=== PATIENT | male | born 1955 | race Caucasian/White ===

== ENCOUNTER 2017-11-18 23:09 | Emergency (ER) | payer BC, MEDICARE ==
[~2017-11-18] VITALS: Ht 177.8 cm; Wt 80.3 kg
[2017-11-18] MEDS ORDERED: FURO40TA4 (23:23)
[2017-11-18] MEDS ORDERED: AMLO10TA2 (23:23)
[2017-11-18] MEDS ORDERED: OMEP20CA12 (23:23)
[2017-11-18] MEDS ORDERED: ALLO300T2 (23:23)
[2017-11-18] MEDS ORDERED: FA/V1TAB2 PO (23:23)
[2017-11-18] MEDS ORDERED: SERT50TA9 (23:23)
[2017-11-18] MEDS ORDERED: CALC0.253 PO (23:23)
[2017-11-18] MEDS ORDERED: fentaNYL INJECTION 100 MCG/2 ML AMP IVP ONE (23:30)
[2017-11-18 23:48] LABS: BASOPHILS % (AUTO) 0 % (0-10); EOSINOPHILS % (AUTO) 0 % (0-10); HEMATOCRIT 29 % (40-54); LYMPHOCYTES # (AUTO) 0.8 X 10^3 (1.0-4.0); MEAN CORPUSCULAR HEMOGLOBIN 31 PG (25-34); MEAN CORPUSCULAR HGB CONC 35 G/DL (32-36); MEAN CORPUSCULAR VOLUME 89 FL (80-99); MONOCYTES # (AUTO) 0.8 X 10^3 (0.0-1.0); MONOCYTES % (AUTO) 7 % (0-12); NEUTROPHILS # (AUTO) 9.6 X 10^3 (1.8-7.8); NEUTROPHILS % (AUTO) 85 % (42-75); PLATELET COUNT 168 10^3/uL (130-400); RED BLOOD COUNT 3.22 10^6/uL (4.35-5.85); RED CELL DISTRIBUTION WIDTH 14.9 % (10.0-14.5); WHITE BLOOD COUNT 11.2 10^3/uL (4.3-11.0)
[2017-11-18 23:51] LABS: LYMPHOCYTES % (AUTO) 8 % (12-44)
[2017-11-19 00:06] LABS: CALCIUM 8.7 MG/DL (8.5-10.1); TOTAL PROTEIN 6.4 GM/DL (6.4-8.2)
[2017-11-19 00:22] LABS: CREATININE SERUM 11.98 MG/DL (0.60-1.30)
[2017-11-19] MEDS ORDERED: CEFEPIME INJECTION 2,000 MG in NS (IVPB) 50 ML IV ONE (01:30)
[2017-11-19] MEDS ORDERED: fentaNYL INJECTION 100 MCG/2 ML AMP IVP ONE (02:30)
--- NOTE | 2017-11-19 02:41 | ED Abdominal Pain ---
General Chief Complaint: Abdominal/GI Problems Stated Complaint: KIDNEY PROBLEMS Nursing Triage Note: PT PRESENTS TO ER BY EMS WITH COMPLAINT OF ABD PAIN. STATES HE DOES PERITONEAL DIALYSIS AT HOME. STATES HIS FLUID IS CLOUDY AND "LOOKS LIKE PEE". PT WAS UNABLE TO PERFORM DIALYSIS TONIGHT. Sepsis Screen: No Definite Risk Source of Information: Patient Exam Limitations: No Limitations History of Present Illness Date Seen by Provider: November 18, 2017 Time Seen by Provider: 23:14 Initial Comments This 62-year-old gentleman presents via EMS with complaints of abdominal pain. He performs peritoneal dialysis at home and he began having pain with his dialysis with his treatment yesterday. Pain persisted through the day. He contacted his dialysis nurse who instructed him to perform half a treatment to evaluate the peritoneal fluid. Peritoneal fluid was cloudy. He was instructed to mix the antibiotics he keeps on hand at home and infuse them for a six-hour treatment. Patient had difficulty setting up his cycler and pain was escalating. He therefore decided to present to the emergency room for further care. He was not able to get any of the antibiotics infused. He had a questionable fever last night and some nausea. He is afebrile on arrival. Patient's sticker operator is Dr. Mena at [facility]. He receives his primary care at the [facility] in [place]. Allergies and Home Medications Allergies Coded Allergies: No Known Drug Allergies (Unverified , 11/18/17) Patient Home Medication List Home Medication List Reviewed: Yes Review of Systems Constitutional: see HPI EENTM: No Symptoms Reported Respiratory: No Symptoms Reported Cardiovascular: No Symptoms Reported Gastrointestinal: See HPI Genitourinary: See HPI Musculoskeletal: no symptoms reported Skin: no symptoms reported Psychiatric/Neurological: No Symptoms Reported Endocrine: No Symptoms Reported Hematologic/Lymphatic: No Symptoms Reported Past Ussfvwf-Hpatif-Oxcjhe Hx Patient Social History Alcohol Use: Occasionally Uses Recreational Drug Use: No Smoking Status: Former Smoker Recent Foreign Travel: No Contact w/Someone Who Travel: No Recent Infectious Disease Expo: No Recent Hopitalizations: No Immunizations Up To Date PED Vaccines UTD: Yes Seasonal Allergies Seasonal Allergies: No Past Medical History Surgeries: Yes Abdominal, Orthopedic Respiratory: No Cardiac: Yes Hypertension Neurological: No Genitourinary: Yes Renal Failure, Dialysis Gastrointestinal: Yes Gastroesophageal Reflux Musculoskeletal: No Endocrine: No HEENT: No Cancer: No Psychosocial: No Integumentary: No Blood Disorders: No Physical Exam Vital Signs Vital Signs - First Documented 11/18/17 23:11 Pulse 105 Resp 20 B/P (MAP) 142/94 (110) Pulse Ox 97 O2 Delivery Room Air Capillary Refill : Less Than 3 Seconds General Appearance: WD/WN, no apparent distress HEENT: PERRL/EOMI, normal ENT inspection Neck: normal inspection Respiratory: lungs clear, normal breath sounds, no respiratory distress, no accessory muscle use Cardiovascular: regular rate, rhythm, no edema, no murmur Gastrointestinal: normal bowel sounds, soft, guarding, tenderness (patient is exquisitely tender even to light palpation) Extremities: normal inspection, no pedal edema Neurologic/Psychiatric: tip mender II-XII nml as tested, no motor/sensory deficits, alert, normal mood/affect, oriented x 3 Skin: normal color, warm/dry Focused Exam Lactate Level 11/18/17 23:30: Lactic Acid Level 0.74 Lactic Acid Level Laboratory Tests Test 11/18/17 23:30 Lactic Acid Level 0.74 MMOL/L (0.50-2.00) Progress/Results/Core Measures Results/Orders Lab Results Laboratory Tests Test 11/18/17 23:30 Range/Units White Blood Count 11.2 H 4.3-11.0 10^3/uL Red Blood Count 3.22 L 4.35-5.85 10^6/uL Hemoglobin 10.0 L 13.3-17.7 G/DL Hematocrit 29 L 40-54 % Mean Corpuscular Volume 89 80-99 FL Mean Corpuscular Hemoglobin 31 25-34 PG Mean Corpuscular Hemoglobin Concent 35 32-36 G/DL Red Cell Distribution Width 14.9 H 10.0-14.5 % Platelet Count 168 130-400 10^3/uL Mean Platelet Volume 9.0 7.4-10.4 FL Neutrophils (%) (Auto) 85 H 42-75 % Lymphocytes (%) (Auto) 8 L 12-44 % Monocytes (%) (Auto) 7 0-12 % Eosinophils (%) (Auto) 0 0-10 % Basophils (%) (Auto) 0 0-10 % Neutrophils # (Auto) 9.6 H 1.8-7.8 X 10^3 Lymphocytes # (Auto) 0.8 L 1.0-4.0 X 10^3 Monocytes # (Auto) 0.8 0.0-1.0 X 10^3 Eosinophils # (Auto) 0.0 0.0-0.3 10^3/uL Basophils # (Auto) 0.0 0.0-0.1 10^3/uL Sodium Level 138 135-145 MMOL/L Potassium Level 4.0 3.6-5.0 MMOL/L Chloride Level 105 98-107 MMOL/L Carbon Dioxide Level 19 L 21-32 MMOL/L Anion Gap 14 5-14 MMOL/L Blood Urea Nitrogen 68 H 7-18 MG/DL Creatinine 11.98 H 0.60-1.30 MG/DL Estimat Glomerular Filtration Rate 4 BUN/Creatinine Ratio 6 Glucose Level 94 70-105 MG/DL Lactic Acid Level 0.74 0.50-2.00 MMOL/L Calcium Level 8.7 8.5-10.1 MG/DL Total Bilirubin 1.0 0.1-1.0 MG/DL Aspartate Amino Transf (AST/SGOT) 12 5-34 U/L Alanine Aminotransferase (ALT/SGPT) 12 0-55 U/L Alkaline Phosphatase 60 40-136 U/L C-Reactive Protein High Sensitivity 13.94 H 0.00-0.50 MG/DL Total Protein 6.4 6.4-8.2 GM/DL Albumin 4.0 3.2-4.5 GM/DL Lipase 23 8-78 U/L My Orders Orders - PINEDA QUEVEDO MD Cbc With Automated Diff (11/18/17 23:19) Comprehensive Metabolic Panel (11/18/17 23:19) Hs C Reactive Protein (11/18/17 23:19) Blood Culture (11/18/17 23:19) Saline Lock/Iv-Start (11/18/17 23:19) Lactic Acid Analyzer (11/18/17 23:19) Fentanyl Injection (Sublimaze Injection (11/18/17 23:30) Lipase (11/18/17 23:19) Cefepime Injection (Maxipime Injection) (11/19/17 01:30) Fentanyl Injection (Sublimaze Injection (11/19/17 02:30) Vancomycin Injection (Vancomycin Injecti (11/19/17 03:00) Vancomycin Injection (Vancomycin Injecti (11/19/17 03:00) Medications Given in ED Current Medications Medications Dose Ordered Sig/Edison Route Start Time Stop Time Status Last Admin Dose Admin Cefepime HCl 2000 mg/Sodium Chloride 50 ml @ 200 mls/hr ONCE ONCE IV 11/19/17 01:30 11/19/17 01:44 DC 11/19/17 01:42 200 MLS/HR Fentanyl Citrate 75 mcg ONCE ONCE IVP 11/19/17 02:30 11/19/17 02:31 DC 11/19/17 02:58 75 MCG Fentanyl Citrate 75 mcg ONCE ONCE IVP 11/18/17 23:30 11/18/17 23:31 DC 11/18/17 23:41 75 MCG Vital Signs/I&O 11/18/17 11/19/17 23:11 03:04 Pulse 105 102 Resp 20 20 B/P (MAP) 142/94 (110) 96/53 Pulse Ox 97 99 O2 Delivery Room Air Room Air Blood Pressure Mean: 110 Progress Progress Note : Progress Note Patient was treated with fentanyl and Zofran. Case was reviewed with the sticker operator on-call at [facility], Dr. Price. She recommended starting cefepime and vancomycin and transferring to [facility] for further assessment. Case was also reviewed with Dr. Amna Waters hospitalist, who accepts the transfer. Imaging is being deferred to the receiving facility. Blood culture was obtained prior to starting antibiotics. Departure Impression Primary Impression: Peritonitis Additional Impressions: End stage renal failure on dialysis Abdominal pain Qualified Codes: R10.84 - Generalized abdominal pain Nausea Disposition: XFER SHT-TRM HOSP Condition: Improved Transfer Time Spoke to Accepting Phy: 01:07 Transfer Time: 03:01 Transfer Facility: [facility] Dr. Woo and Dr. Price Method of Transfer: EMS Departure-Patient Inst. Referrals: VERÓNICA WOLF MD (PCP) Primary Care Physician RAMIRO HALL (Family) Primary Care Physician PINEDA QUEVEDO MD November 19, 2017 02:41
[2017-11-19] MEDS ORDERED: VANCOMYCIN INJECTION 1,000 MG in NS (IVPB) 250 ML IV ONE ×4 (03:00)
[2017-11-19 03:04] VITALS: BP 96/53
== END 2017-11-19 03:04 | disposition short-term general hospital (02) ==
LOC: ER 23:14
DX: K65.9 Peritonitis, unspecified (principal); I12.0 Hypertensive chronic kidney disease with stage 5 chronic kidney disease or end stage renal disease; N18.6 End stage renal disease; K21.9 Gastro-esophageal reflux disease without esophagitis; Z99.2 Dependence on renal dialysis; Z87.891 Personal history of nicotine dependence
CPT/HCPCS: 36415; 80053; 83605; 83690; 85025; 86141; 87040; 96365; 96375; 96376

== ENCOUNTER 2020-11-15 06:37 | Outpatient (CLI) | payer MEDICARE, OTHER ==
[~2020-11-15] VITALS: Ht 177.8 cm; Wt 84.8 kg
[~2020-11-15 06:37] MED LIST: ALLO300T2 PO; AMLO-251; CALC0.253 PO; FA/V1TAB2 PO; FURO40TA4; OMEP20CA18 PO; SERT-413 PO
[2020-11-15] MEDS ORDERED: CALC667T5 PO (12:03)
[2020-11-15] MEDS ORDERED: CALC667T7 PO (12:03)
[2020-11-15] MEDS ORDERED: CARV6.252 PO (12:03)
[2020-11-15] MEDS ORDERED: PRAV20TA3 PO (12:03)
[2020-11-15] MEDS ORDERED: FURO80TA3 PO (12:03)
[2020-11-15] MEDS ORDERED: FERR210T PO (12:03)
[2020-11-15] MEDS ORDERED: MAGN400T50 PO (12:04)
[2020-11-15] MEDS ORDERED: CINA30TA2 PO (12:04)
[2020-11-15] MEDS ORDERED: BUDE10.2 IH (12:04)
[2020-11-15] MEDS ORDERED: OMEG1CAP58 PO (12:04)
[2020-11-15] MEDS ORDERED: TIOT18CA2 IH (12:04)
[2020-11-15] MEDS ORDERED: RT-ALBUINH INH (12:04)
== END 2020-11-15 12:08 | disposition home or self-care (01) ==
LOC: PREOP 06:37
PROVIDERS: ATTEND Surgery
DX: Z01.818 Encounter for other preprocedural examination (principal)

== ENCOUNTER 2020-11-16 07:44 | Day surgery (SDC) | payer MEDICARE, OTHER ==
[2020-11-16] VITALS (8 sets, daily range): BP systolic 68–132; BP diastolic 55–87
[~2020-11-16] VITALS: Ht 177.8 cm; Wt 84.8 kg
[~2020-11-16 07:44] MED LIST changes: +BUDE10.2 IH; +CALC667T5 PO; +CALC667T7 PO; +CARV6.252 PO; +CINA30TA2 PO; +FERR210T PO; +FURO80TA3 PO; +MAGN400T50 PO; +OMEG1CAP58 PO; +PRAV20TA3 PO; +RT-ALBUINH INH; +TIOT18CA2 IH
[2020-11-16] MEDS ORDERED: ceFAZolin 2 GM IV Premixed 50 ML IV ONE (08:00)
[2020-11-16] MEDS ORDERED: LACTATED RINGERS 1,000 ML IV PRN (08:00)
--- NOTE | 2020-11-16 08:03 | Progress Note-Pre Operative ---
Pre-Operative Progress Note H&P Reviewed The H&P was reviewed, patient examined and no changes noted. Date Seen by Provider: November 16, 2020 Time Seen by Provider: 08:02 Date H&P Reviewed: November 16, 2020 Time H&P Reviewed: 08:02 Pre-Operative Diagnosis: LUNG CANCER CAROLINE MCKEON DO November 16, 2020 08:03
[2020-11-16] MEDS ORDERED: 0.9% SODIUM CHLORIDE PF INJ 20 ML VIAL ONE (08:08)
[2020-11-16] MEDS ORDERED: LIDOCAINE/EPI 1%-1:100,000 (XYLOCAINE) 20ML ONE (08:08)
[2020-11-16] MEDS ORDERED: HEParin (CENTRAL IV FLUSH) 500 UNIT/5 ML SYR ONE (08:08)
[2020-11-16] MEDS ORDERED: MIDAZOLAM 2 MG/2 ML (VERSED) VIAL ONE (08:57)
[2020-11-16] MEDS ORDERED: PROPOFOL INJECTION 50 ML IV ONE (08:57)
[2020-11-16] MEDS ORDERED: fentaNYL INJ 100 MCG/2 ML AMP ONE (09:01)
--- NOTE | 2020-11-16 09:53 | Progress Note-Post Operative ---
Post-Operative Progess Note Surgeon (s)/Chief Program Officer (s) Surgeon CAROLINE MCKEON DO Chief Program Officer: na Pre-Operative Diagnosis LUNG CANCER Post-Operative Diagnosis same Procedure & Operative Findings Date of Procedure 11/16/20 Procedure Performed/Findings PROCEDURE: Right internal jugular port placement using ultrasound guidance. COMPLICATIONS: None. INDICATIONS: The patient is a 65 year old male needing port. Patient understands the risks and benefits of port placement and wished to proceed with the procedure. Consent was signed on the chart. PROCEDURE: The patient was taken to the operating suite, was prepped and draped in the sterile fashion. A surgical pause was performed. Ultrasound was used to locate the internal jugular vein. Once located anesthetic was infiltrated above it. Using micro-access kit, the right internal vein was accessed. Dark nonpulsatile blood was withdrawn. The wire was inserted. Fluoroscopy assured proper placement. The needle was removed. The micro-access dilator was advanced over the wire and the wire was removed. The regular wire was inserted and fluoroscopy assured proper placement. The wire was then secured. Local anesthetic was used to anesthetize from the neck for tunneling down to the right chest and for pocket creation. A 15 blade scalpel was used to make an incision over the right chest. Cautery was used to dissect down to the pectoral fascia. A pocket was created with blunt dissection. The dilator sheath was then advanced over the wire under fluoroscopy and the dilator and wire were removed. The Gro[place]ong catheter was inserted through the sheath and the sheath was then removed. The [place]ong wire was removed. The catheter was then tunneled to the right chest pocket. Fluoroscopy was used to cut to length and this was then attached to the port which was then placed within the pocket. The port was then accessed without difficulty. It was then flushed with saline and then heparin. The subcutaneous tissues were then reapproximated using 3-0 Vicryl. The areas were then washed and dried. Skin Affix was placed over incision. The insertion point of the neck Skin Affix was placed over the incision. The patient tolerated the procedure well without complication and was taken to recovery room in stable condition. Chest x-ray is pending. Anesthesia Type mac c local Estimated Blood Loss Estimated blood loss (mL): minimal Specimens/Packing Specimens Removed CAROLINE Forbes DO November 16, 2020 09:53
--- NOTE | 2020-11-16 09:54 | Discharge Inst-Simple/Standard ---
Discharge Inst-Standard Patient Instructions/Follow Up Plan of Care/Instructions/FU: 2 weeks [place] Activity as Tolerated: No Discharge Diet: Regular Diet Other Inst to Patient Follow up Appt: Make appointment for 2 week. Instructions: No lifting greater than 10 pounds. No strenuous activity. May shower in 24 hours, no tub bath or soaking. Use incentive spirometer at home as directed. No Smoking Skin/Wound Care: You have special glue over your incision that will fall off on it's own. Ice pack on 15 min and off 30 min and repeat for 48 hours, this decreases swelling and discomfort. Symptoms to Report: Appetite Changes, Extremity Discoloration, Numbness/Tingling, Swelling Increased, Bleeding Excessive, Eyesight Changes, Pain Increased, Urine Color Change, Constipation(Persistent), Fever over 101 degree F, Pain/Pressure in chest, Urinating Difficulty, Cough Up/Vomit Blood, Heart Beat Irreg/Pounding, Pain/Pressure in jaw, Vaginal Bleeding Increase, Cramps in feet or legs, Lightheadedness, Pain/Pressure in shoulder, Diarrhea(Persistent), Memory Changes Suddenly, Questions/Concerns, Weight gain consecutive days, Dizziness/Fainting, Nausea/Vomiting, Shortness of Breath, Weight gain over 2 pounds If questions or concerns contact your physician Or seek help at emergency department. CAROLINE MCKEON DO November 16, 2020 09:54
--- NOTE | 2020-11-16 10:02 | Anesthesia-General Post-Op ---
MAC Patient Condition Mental Status/LOC: Same as Preop Cardiovascular: Satisfactory Nausea/Vomiting: Absent Respiratory: Satisfactory Pain: Controlled Complications: Absent Post Op Complications Complications None Follow Up Care/Instructions Patient Instructions None needed. Anesthesiology Discharge Order Discharge Order Patient is doing well, no complaints, stable vital signs, no apparent adverse anesthesia problems. No complications reported per nursing. MAYUR STOREY CRNA November 16, 2020 10:02
[2020-11-16] MEDS ORDERED: MEPERIDINE (DEMEROL) INJ 50 MG/ML IVP ONE (10:15)
[2020-11-16] MEDS ORDERED: ONDANSETRON 4 MG/2 ML (SDV) Z0FRAN IVP PRN (10:15)
[2020-11-16] MEDS ORDERED: morphine INJ 10 MG/ML 1ML (SYR OR VIAL) IVP ONE (10:15)
--- NOTE | 2020-11-16 10:49 | Diagnostic Imaging Report ---
CHEST 1 VIEW, AP/PA ONLY Indication: Status post Port-A-Cath placement. Comparison: None available. Findings: Right IJ Port-A-Cath has tip terminating in the mid SVC. No pleural effusion or pneumothorax. Lungs are clear where visualized. Posterior lower lobes are poorly evaluated by portable radiography. Normal cardiomediastinal silhouette. Impression: 1. No pneumothorax status post Port-A-Cath placement. Dictated by: Dictated on workstation # [id number]
--- NOTE | 2020-11-16 12:49 | Diagnostic Imaging Report ---
INDICATION: Port-A-Cath placement. Fluoroscopy was provided in the OR during Port-A-Cath placement. 11 seconds of fluoroscopic time was utilized. A single image was obtained demonstrating a right chest wall port with tip overlying the SVC. IMPRESSION: Fluoroscopy for right chest wall port placement. Dictated by: Dictated on workstation # [id number]
== END 2020-11-16 11:50 | disposition home or self-care (01) ==
LOC: SDC 07:44
PROVIDERS: ATTEND Surgery
DX: C34.90 Malignant neoplasm of unspecified part of unspecified bronchus or lung (principal); C78.7 Secondary malignant neoplasm of liver and intrahepatic bile duct; I12.0 Hypertensive chronic kidney disease with stage 5 chronic kidney disease or end stage renal disease; N18.5 Chronic kidney disease, stage 5; Z79.899 Other long term (current) drug therapy; Z87.891 Personal history of nicotine dependence
CPT/HCPCS: 36430; 36561; 71045; 76000; 87081; C1788

== ENCOUNTER 2020-11-17 20:43 | Emergency (ER) | payer MEDICARE, OTHER ==
[~2020-11-17] VITALS: Ht 177.8 cm; Wt 84.8 kg
[2020-11-17 20:58] LABS: BASOPHILS # (AUTO) 0.1 10^3/uL (0.0-0.1); BASOPHILS % (AUTO) 1 % (0-10); EOSINOPHILS # (AUTO) 0.3 10^3/uL (0.0-0.3); EOSINOPHILS % (AUTO) 3 % (0-10); HEMATOCRIT 27 % (40-54); LYMPHOCYTES # (AUTO) 0.7 10^3/uL (1.0-4.0); LYMPHOCYTES % (AUTO) 9 % (12-44); MEAN CORPUSCULAR HEMOGLOBIN 30 pg (25-34); MEAN CORPUSCULAR HGB CONC 33 g/dL (32-36); MEAN CORPUSCULAR VOLUME 90 fL (80-99); MEAN PLATELET VOLUME 10.2 fL (9.0-12.2); MONOCYTES # (AUTO) 0.5 10^3/uL (0.0-1.0); MONOCYTES % (AUTO) 6 % (0-12); NEUTROPHILS # (AUTO) 6.7 10^3/uL (1.8-7.8); NEUTROPHILS % (AUTO) 81 % (42-75); PLATELET COUNT 155 10^3/uL (130-400); WHITE BLOOD COUNT 8.2 10^3/uL (4.3-11.0)
[2020-11-17 21:05] VITALS: BP_SYST 111; BP_SYST 117; BP_SYST 120; BP_DIAS 55; BP_DIAS 65; BP_DIAS 67
[2020-11-17 21:09] LABS: ALBUMIN 3.1 GM/DL (3.2-4.5); POTASSIUM 2.8 MMOL/L (3.6-5.0)
[2020-11-17 21:10] LABS: CALCIUM 8.5 MG/DL (8.5-10.1)
[2020-11-17 21:11] LABS: TOTAL PROTEIN 6.2 GM/DL (6.4-8.2)
--- NOTE | 2020-11-17 21:12 | ED Syncope ---
General Chief Complaint: Dizziness/Syncope Stated Complaint: DIZZY Nursing Triage Note: brought in by [facility] for c/o dizziness/lightheaded at home approx. 2014. Source of Information: Patient Exam Limitations: No Limitations (AVERY DICKINSON STUDENT) History of Present Illness Date Seen by Provider: November 17, 2020 Time Seen by Provider: 20:45 Initial Comments Pt arrived via EMS with complaints of new onset lightheadedness/dizzin ess/weakness when trying to get up from the dinner table tonight. Denies LOC, fainting. BP 80/40 per EMS. Significant history of CRF, COPD, lung and liver cancer. Denies prior episodes of similar events. Denies chest pain, N/V, abd pain. Has chronic SOB r/t COPD. Timing/Prior Episodes: No Prior History, Single Episode Today Symptoms Prior to Episode: None Precipitating Factors: Standing Episode Description: Acute onset lightheadedness when moving from sitting to standing position Loss of Consciousness: No Loss of Consciousness Current Symptoms: Back to Normal (AVERY DICKINSON STUDENT) Allergies and Home Medications Allergies Coded Allergies: No Known Drug Allergies (Unverified , 11/18/17) Home Medications Albuterol Sulfate 1 Puff Puff, 2 PUFF INH Q4H PRN for WHEEZING, (Reported) 1 PUFF = 90 MCG Allopurinol 300 Mg Tablet, 300 MG PO DAILY, (Reported) Budesonide/Formoterol Fumarate 10.2 Gm Hfa.aer.ad, 2 PUFF IH BID, (Reported) Calcitriol 0.25 Mcg Capsule, 0.25 MCG PO DAILY, (Reported) Calcium Acetate 667 Mg Tablet, 2,001 MG PO TIDWM, (Reported) TAKE 3 (667MG) TABS Calcium Acetate 667 Mg Tablet, 1,334 MG PO UD, (Reported) TAKE 2 (667MG) TABS WITH SNACKS Carvedilol 6.25 Mg Tablet, 6.25 MG PO BID, (Reported) Cinacalcet HCl 30 Mg Tablet, 30 MG PO SuMoWeFr, (Reported) FA/Vit Bcomp&C/Zinc/Vitamin D3 1 Each Tablet, 1 EACH PO DAILY, (Reported) Ferric Citrate 210 Mg Tablet, 210 MG PO TIDWM, (Reported) Furosemide 80 Mg Tablet, 80 MG PO DAILY, (Reported) Magnesium Oxide 400 Mg Tablet, 400 MG PO DAILY, (Reported) [place]-3 Fatty Acids/Fish Oil 1 Each Capsule, 1 EACH PO DAILY, (Reported) Omeprazole 20 Mg Capsule.dr, 20 MG PO BID, (Reported) Pravastatin Sodium 20 Mg Tablet, 20 MG PO HS, (Reported) Sertraline HCl 50 Mg Tablet, 50 MG PO DAILY, (Reported) Tiotropium [place] 1 Inh Aerp, 1 INH IH DAILY, (Reported) Patient Home Medication List Home Medication List Reviewed: Yes (AVERY DICKINSON) Review of Systems Constitutional: dizziness, weakness, other (lightheaded) EENTM: other (dry mouth); No hearing loss, No vision loss Respiratory: No cough; short of breath Cardiovascular: No chest pain, No edema, No palpitations Gastrointestinal: No constipation, No diarrhea, No nausea, No vomiting Genitourinary: No dysuria, No hematuria Musculoskeletal: No back pain, No joint pain Psychiatric/Neurological: Denies Headache, Denies Numbness, Denies Paresthesia (AVERY DICKINSON) All Other Systems Reviewed Negative Unless Noted: Yes (AVERY DICKINSON) Past Xjzhxzq-Tiuxku-Aqlsmo Hx Past Med/Social Hx: Reviewed Nursing Past Med/Soc Hx (AVERY DICKINSON) Patient Social History Alcohol Use: Occasionally Uses Smoking Status: Former Smoker Former Smoker, Quit: November 15, 2017 Recent Infectious Disease Expo: No Recent Hopitalizations: No (port placed 11/16/20) (AVERY DICKINSON) Immunizations Up To Date PED Vaccines UTD: Yes Date of Pneumonia Vaccine: November 15, 2018 Date of Influenza Vaccine: Apr 12, 2020 (AVERY DICKINSON) Seasonal Allergies Seasonal Allergies: No (AVERY DICKINSON) Past Medical History Surgeries: Yes (diaylsis cath, ) Abdominal, Orthopedic Respiratory: Yes (lung cancer) COPD Currently Using CPAP: No Currently Using BIPAP: No Cardiac: Yes Hypertension Neurological: No Genitourinary: Yes (DIALYSIS AT HOME EACH NIGHT) Renal Failure, Dialysis Gastrointestinal: Yes Gastroesophageal Reflux Musculoskeletal: No Endocrine: No HEENT: No Cancer: Yes (upper dentures) Lung Psychosocial: No Integumentary: No Blood Disorders: No (AVERY DICKINSON) Physical Exam Vital Signs Vital Signs - First Documented 11/17/20 20:44 Temp 36.6 Pulse 83 Resp 16 B/P (MAP) 115/57 (76) Pulse Ox 98 O2 Delivery Room Air (OBDULIA LOGAN) Vital Signs Capillary Refill : Less Than 3 Seconds (AVREY DICKINSON STUDENT) Height, Weight, BMI Height: 5'10.00" Weight: 177lbs. oz. 80.586603zw; 26.00 BMI Method:Stated General Appearance: No Apparent Distress, WD/WN HEENT: PERRL/EOMI, Other (dry mucus membranes) Neck: Full Range of Motion, Normal Inspection, Non Tender, Supple Cardiovascular: Regular Rate, Rhythm, No Edema, No Murmur, Normal Peripheral Pulses Respiratory: Chest Non Tender, Lungs Clear, Normal Breath Sounds, No Accessory Muscle Use, No Respiratory Distress Gastrointestinal: Normal Bowel Sounds, Soft, Distended, Tenderness (mild tenderness to RUQ), Other (peritoneal dialysis catheter R abd) Extremities: Normal Capillary Refill, Normal Inspection, Normal Range of Motion, Non Tender Neurologic/Psychiatric: Alert, Oriented x3, No Motor/Sensory Deficits, Normal Mood/Affect Cranial Nerves: Normal Hearing, Normal Speech Motor/Sensory: No Motor Deficit, No Sensory Deficit Skin: Normal Color, Warm/Dry, Other (surgical incision to R upper chest sealed with dermabond, c/d/i, no s/s infection) Lymphatic: No Adenopathy (AVERY DICKINSON STUDENT) Progress/Results/Core Measures Results/Orders Lab Results Laboratory Tests Test 11/17/20 20:50 Range/Units White Blood Count 8.2 4.3-11.0 10^3/uL Red Blood Count 3.02 L 4.30-5.52 10^6/uL Hemoglobin 9.0 L 13.3-17.7 g/dL Hematocrit 27 L 40-54 % Mean Corpuscular Volume 90 80-99 fL Mean Corpuscular Hemoglobin 30 25-34 pg Mean Corpuscular Hemoglobin Concent 33 32-36 g/dL Red Cell Distribution Width 13.6 10.0-14.5 % Platelet Count 155 130-400 10^3/uL Mean Platelet Volume 10.2 9.0-12.2 fL Immature Granulocyte % (Auto) 1 % Neutrophils (%) (Auto) 81 H 42-75 % Lymphocytes (%) (Auto) 9 L 12-44 % Monocytes (%) (Auto) 6 0-12 % Eosinophils (%) (Auto) 3 0-10 % Basophils (%) (Auto) 1 0-10 % Neutrophils # (Auto) 6.7 1.8-7.8 10^3/uL Lymphocytes # (Auto) 0.7 L 1.0-4.0 10^3/uL Monocytes # (Auto) 0.5 0.0-1.0 10^3/uL Eosinophils # (Auto) 0.3 0.0-0.3 10^3/uL Basophils # (Auto) 0.1 0.0-0.1 10^3/uL Immature Granulocyte # (Auto) 0.1 0.0-0.1 10^3/uL Sodium Level 140 135-145 MMOL/L Potassium Level 2.8 L 3.6-5.0 MMOL/L Chloride Level 98 98-107 MMOL/L Carbon Dioxide Level 22 21-32 MMOL/L Anion Gap 20 H 5-14 MMOL/L Blood Urea Nitrogen 54 H 7-18 MG/DL Creatinine 18.76 #H 0.60-1.30 MG/DL Estimat Glomerular Filtration Rate 3 BUN/Creatinine Ratio 3 Glucose Level 119 H 70-105 MG/DL Calcium Level 8.5 8.5-10.1 MG/DL Corrected Calcium 9.2 8.5-10.1 MG/DL Total Bilirubin 0.7 0.1-1.0 MG/DL Aspartate Amino Transf (AST/SGOT) 30 5-34 U/L Alanine Aminotransferase (ALT/SGPT) 18 0-55 U/L Alkaline Phosphatase 264 H 40-136 U/L Troponin I 0.032 H <0.028 NG/ML C-Reactive Protein High Sensitivity 8.32 H 0.00-0.50 MG/DL B-Type Natriuretic Peptide 55.0 <100.0 PG/ML Total Protein 6.2 L 6.4-8.2 GM/DL Albumin 3.1 L 3.2-4.5 GM/DL (OBDULIA LOGAN) My Orders Orders - OBDULIA LOGAN Orthostatic Vital Signs (Adult (11/17/20 20:48) Cbc With Automated Diff (11/17/20 20:48) Comprehensive Metabolic Panel (11/17/20 20:48) Hs C Reactive Protein (11/17/20 20:48) BNP (11/17/20 20:48) Troponin I (11/17/20 20:48) Continuous Ekg Monitoring (11/17/20 20:48) Ekg Tracing (11/17/20 20:48) (OBDULIA LOGAN) Vital Signs/I&O 11/17/20 11/17/20 20:44 21:05 Temp 36.6 Pulse 83 80 85 84 Resp 16 B/P (MAP) 115/57 (76) 120/67 (84) 117/65 (82) 111/55 (73) Pulse Ox 98 O2 Delivery Room Air (OBDULIA LOGAN) Blood Pressure Mean: 73 Progress Progress Note #1: Time: 21:48 Progress Note I attest that I saw this patient alongside the medical student and agree with his documented history, physical exam and review of systems except as otherwise noted. Patient is with orthostatic hypotension. After a liter of fluids he feels much better. We will try getting him up walking around to see if he has near syncope. We did offer hospital observation at [facility] and he says if he can get up and walk around he is fine to go home. Progress Note #2: Time: 22:08 Progress Note Patient was able to walk with staff and is no longer orthostatic. He elects to go home at this time after discussing observation stay. (OBDULIA LOGAN) Initial ECG Impression Date: November 17, 2020 Initial ECG Impression Time: 20:59 Initial ECG Rate: 81 Initial ECG Rhythm: Normal Sinus Initial ECG Intervals: Normal Initial ECG Impression: Normal, Nonspecific Changes Initial ECG Comparisson: Unchanged Comment Sinus rhythm without clinically relevant ST changes. (OBDULIA LOGAN) Departure Impression Primary Impression: Orthostatic hypotension Disposition: 01 HOME, SELF-CARE Condition: Stable Departure-Patient Inst. Decision time for Depature: 22:08 (OBDULIA LOGAN) Referrals: ANMOL HOOK APRN (PCP/Family) Primary Care Physician Patient Instructions: Orthostatic Hypotension (DC) Add. Discharge Instructions: Go home and do dialysis and call your spray foam installer on Thursday for follow-up in the clinic. Return to the ER for significantly worsening symptoms. All discharge instructions reviewed with patient and/or family. Voiced understanding. AVERY DICKINSON MED STUDENT November 17, 2020 21:12 OBDULIA LOGAN November 17, 2020 21:48
[2020-11-17 21:13] LABS: BILIRUBIN,TOTAL 0.7 MG/DL (0.1-1.0)
[2020-11-17 21:15] LABS: CREATININE SERUM 18.76 MG/DL (0.60-1.30)
[2020-11-17 22:09] VITALS: BP 136/79
== END 2020-11-17 22:14 | disposition home or self-care (01) ==
LOC: EDUNIT# 20:43 → ER 20:46
DX: I95.1 Orthostatic hypotension (principal); J44.9 Chronic obstructive pulmonary disease, unspecified; I10 Essential (primary) hypertension; K21.9 Gastro-esophageal reflux disease without esophagitis; Z87.891 Personal history of nicotine dependence; Z79.899 Other long term (current) drug therapy
CPT/HCPCS: 36415; 80053; 83880; 84484; 85025; 86141; 93005

== ENCOUNTER → 2020-11-23 | Outpatient (CLI) | payer MEDICARE, OTHER ==
[~2020-11-23] MED LIST changes: +GADOBUTROL 10 MMOL/10 ML (GADAVIST) VIAL IV ONE
--- NOTE | 2020-11-23 11:09 | Diagnostic Imaging Report ---
PROCEDURE: MR imaging of the brain with and without contrast. TECHNIQUE: Multiplanar, multisequence MR imaging of the brain was performed with and without contrast. INDICATION: Small cell carcinoma of the lung. COMPARISON: No prior studies are available for comparison. FINDINGS: There is some prominence of the ventricles and sulci consistent with cerebral volume loss. Mild periventricular white matter changes are noted consistent with chronic microvascular ischemia. There is no sulcal effacement or midline shift. No acute intra-axial or extra-axial hemorrhage is detected. There is no diffusion restriction identified to suggest acute ischemia. The normal expected flow-voids within the carotid siphons are seen. Postcontrast imaging is without an enhancing lesion. There is no evidence of intracranial metastatic disease. Corpus callosum is unremarkable. The sella and parasellar structures are unremarkable. IMPRESSION: Cerebral atrophy and changes of chronic microvascular ischemia. No acute intracranial process is identified. There are no findings to suggest intracranial metastatic disease. Dictated by: Dictated on workstation # [id number]
== END ==
LOC: RAD 09:30
PROVIDERS: ATTEND Nurse Practitioner Adult Health
DX: C34.90 Malignant neoplasm of unspecified part of unspecified bronchus or lung (principal); C78.7 Secondary malignant neoplasm of liver and intrahepatic bile duct; G31.9 Degenerative disease of nervous system, unspecified; I67.82 Cerebral ischemia
CPT/HCPCS: 70553

== ENCOUNTER → 2020-12-05 | Outpatient (CLI) | payer MEDICARE, OTHER ==
[~2020-12-05] MED LIST changes: -GADOBUTROL 10 MMOL/10 ML (GADAVIST) VIAL IV ONE
[2020-12-05 11:45] LABS: MAGNESIUM 1.4 MG/DL (1.6-2.4); PHOSPHORUS 5.5 MG/DL (2.3-4.7)
== END ==
LOC: LAB 11:09
PROVIDERS: ATTEND Internal Medicine Nephrology
DX: E87.6 Hypokalemia (principal); E83.39 Other disorders of phosphorus metabolism; E83.42 Hypomagnesemia
CPT/HCPCS: 36415; 83735; 84100

== ENCOUNTER 2021-02-04 13:18 | Outpatient (RCR) | payer MEDICARE, OTHER ==
[2020-11-14 13:00] LABS: BASOPHILS # (AUTO) 0.1 10^3/uL (0.0-0.1); BASOPHILS % (AUTO) 1 % (0-10); EOSINOPHILS # (AUTO) 0.5 10^3/uL (0.0-0.3); EOSINOPHILS % (AUTO) 4 % (0-10); HEMATOCRIT 29 % (40-54); HEMOGLOBIN 9.7 g/dL (13.3-17.7); LYMPHOCYTES % (AUTO) 8 % (12-44); MEAN CORPUSCULAR HEMOGLOBIN 30 pg (25-34); MEAN CORPUSCULAR HGB CONC 33 g/dL (32-36); MEAN CORPUSCULAR VOLUME 91 fL (80-99); MEAN PLATELET VOLUME 9.7 fL (9.0-12.2); MONOCYTES # (AUTO) 0.7 10^3/uL (0.0-1.0); MONOCYTES % (AUTO) 6 % (0-12); NEUTROPHILS % (AUTO) 81 % (42-75); PLATELET COUNT 188 10^3/uL (130-400); WHITE BLOOD COUNT 12.3 10^3/uL (4.3-11.0)
[2020-11-14 13:32] LABS: ALBUMIN 3.5 GM/DL (3.2-4.5); BILIRUBIN,TOTAL 0.7 MG/DL (0.1-1.0); CALCIUM 8.4 MG/DL (8.5-10.1); CREATININE SERUM 17.58 MG/DL (0.60-1.30); TOTAL PROTEIN 6.7 GM/DL (6.4-8.2)
[2020-11-28 09:24] LABS: EOSINOPHILS % (AUTO) 5 % (0-10); LYMPHOCYTES % (AUTO) 8 % (12-44)
[2020-11-28 09:26] LABS: BASOPHILS # (AUTO) 0.1 10^3/uL (0.0-0.1); BASOPHILS % (AUTO) 1 % (0-10); EOSINOPHILS # (AUTO) 0.3 10^3/uL (0.0-0.3); HEMATOCRIT 25 % (40-54); HEMOGLOBIN 8.3 g/dL (13.3-17.7); LYMPHOCYTES # (AUTO) 0.4 10^3/uL (1.0-4.0); MEAN CORPUSCULAR HEMOGLOBIN 30 pg (25-34); MEAN CORPUSCULAR HGB CONC 33 g/dL (32-36); MEAN CORPUSCULAR VOLUME 91 fL (80-99); MEAN PLATELET VOLUME 10.5 fL (9.0-12.2); MONOCYTES % (AUTO) 1 % (0-12); NEUTROPHILS # (AUTO) 3.6 10^3/uL (1.8-7.8); NEUTROPHILS % (AUTO) 66 % (42-75); PLATELET COUNT 107 10^3/uL (130-400); WHITE BLOOD COUNT 5.5 10^3/uL (4.3-11.0)
[2020-11-28 09:38] LABS: CALCIUM 7.4 MG/DL (8.5-10.1); CREATININE SERUM 15.16 MG/DL (0.60-1.30); POTASSIUM 3.8 MMOL/L (3.6-5.0)
[2020-12-05 10:27] LABS: EOSINOPHILS # (AUTO) 0.3 10^3/uL (0.0-0.3); EOSINOPHILS % (AUTO) 1 % (0-10); HEMOGLOBIN 8.1 g/dL (13.3-17.7); MONOCYTES # (AUTO) 2.8 10^3/uL (0.0-1.0)
[2020-12-05 10:29] LABS: BASOPHILS # (AUTO) 0.1 10^3/uL (0.0-0.1); BASOPHILS % (AUTO) 0 % (0-10); HEMATOCRIT 25 % (40-54); LYMPHOCYTES # (AUTO) 2.1 10^3/uL (1.0-4.0); LYMPHOCYTES % (AUTO) 8 % (12-44); MEAN CORPUSCULAR HEMOGLOBIN 30 pg (25-34); MEAN CORPUSCULAR HGB CONC 32 g/dL (32-36); MEAN CORPUSCULAR VOLUME 92 fL (80-99); MEAN PLATELET VOLUME 10.3 fL (9.0-12.2); MONOCYTES % (AUTO) 10 % (0-12); NEUTROPHILS % (AUTO) 67 % (42-75); PLATELET COUNT 109 10^3/uL (130-400); WHITE BLOOD COUNT 26.9 10^3/uL (4.3-11.0)
[2020-12-05 11:14] LABS: CALCIUM 8.9 MG/DL (8.5-10.1); CREATININE SERUM 15.04 MG/DL (0.60-1.30)
[2020-12-12 09:10] LABS: BASOPHILS # (AUTO) 0.1 10^3/uL (0.0-0.1); BASOPHILS % (AUTO) 1 % (0-10); EOSINOPHILS # (AUTO) 0.2 10^3/uL (0.0-0.3); EOSINOPHILS % (AUTO) 1 % (0-10); HEMATOCRIT 24 % (40-54); LYMPHOCYTES # (AUTO) 1.1 10^3/uL (1.0-4.0); LYMPHOCYTES % (AUTO) 8 % (12-44); MEAN CORPUSCULAR HEMOGLOBIN 30 pg (25-34); MEAN CORPUSCULAR HGB CONC 33 g/dL (32-36); MEAN CORPUSCULAR VOLUME 91 fL (80-99); MEAN PLATELET VOLUME 9.8 fL (9.0-12.2); MONOCYTES # (AUTO) 0.7 10^3/uL (0.0-1.0); MONOCYTES % (AUTO) 5 % (0-12); NEUTROPHILS # (AUTO) 9.7 10^3/uL (1.8-7.8); NEUTROPHILS % (AUTO) 77 % (42-75); PLATELET COUNT 148 10^3/uL (130-400); WHITE BLOOD COUNT 12.7 10^3/uL (4.3-11.0)
[2020-12-12 09:46] LABS: ALBUMIN 3.4 GM/DL (3.2-4.5); BILIRUBIN,TOTAL 0.6 MG/DL (0.1-1.0); CALCIUM 8.9 MG/DL (8.5-10.1); CREATININE SERUM 15.04 MG/DL (0.60-1.30); POTASSIUM 4.5 MMOL/L (3.6-5.0)
[2020-12-19 15:32] LABS: BASOPHILS # (AUTO) 0.1 10^3/uL (0.0-0.1); BASOPHILS % (AUTO) 0 % (0-10); EOSINOPHILS # (AUTO) 0.2 10^3/uL (0.0-0.3); EOSINOPHILS % (AUTO) 1 % (0-10); LYMPHOCYTES # (AUTO) 1.1 X 10^3 (1.0-4.0); LYMPHOCYTES % (AUTO) 4 % (12-44); MEAN CORPUSCULAR HEMOGLOBIN 30 pg (25-34); MEAN CORPUSCULAR HGB CONC 33 g/dL (32-36); MEAN CORPUSCULAR VOLUME 92 fL (80-99); MEAN PLATELET VOLUME 9.1 fL (9.0-12.2); MONOCYTES # (AUTO) 0.2 X 10^3 (0.0-1.0); MONOCYTES % (AUTO) 1 % (0-12); NEUTROPHILS # (AUTO) 21.4 X 10^3 (1.8-7.8); NEUTROPHILS % (AUTO) 76 % (42-75); PLATELET COUNT 113 10^3/uL (130-400)
[2020-12-19 15:41] LABS: HEMATOCRIT 19 % (40-54); HEMOGLOBIN 6.2 g/dL (13.3-17.7)
[2020-12-19 16:00] LABS: CALCIUM 7.7 MG/DL (8.5-10.1); CREATININE SERUM 15.13 MG/DL (0.60-1.30); POTASSIUM 4.9 MMOL/L (3.6-5.0)
[2020-12-26 09:13] LABS: BASOPHILS % (AUTO) 1 % (0-10); HEMOGLOBIN 7.1 g/dL (13.3-17.7)
[2020-12-26 09:14] LABS: BASOPHILS # (AUTO) 0.1 10^3/uL (0.0-0.1); EOSINOPHILS # (AUTO) 0.6 10^3/uL (0.0-0.3); EOSINOPHILS % (AUTO) 4 % (0-10); HEMATOCRIT 21 % (40-54); LYMPHOCYTES # (AUTO) 1.3 10^3/uL (1.0-4.0); LYMPHOCYTES % (AUTO) 9 % (12-44); MEAN CORPUSCULAR HEMOGLOBIN 30 pg (25-34); MEAN CORPUSCULAR HGB CONC 33 g/dL (32-36); MEAN CORPUSCULAR VOLUME 91 fL (80-99); MEAN PLATELET VOLUME 9.6 fL (9.0-12.2); MONOCYTES # (AUTO) 0.7 10^3/uL (0.0-1.0); MONOCYTES % (AUTO) 4 % (0-12); NEUTROPHILS # (AUTO) 9.5 10^3/uL (1.8-7.8); NEUTROPHILS % (AUTO) 62 % (42-75); PLATELET COUNT 130 10^3/uL (130-400); WHITE BLOOD COUNT 15.3 10^3/uL (4.3-11.0)
[2020-12-26 09:31] LABS: CALCIUM 7.7 MG/DL (8.5-10.1); CREATININE SERUM 16.88 MG/DL (0.60-1.30)
[2021-01-02 11:29] LABS: BASOPHILS # (AUTO) 0.1 10^3/uL (0.0-0.1); BASOPHILS % (AUTO) 1 % (0-10); EOSINOPHILS # (AUTO) 0.4 10^3/uL (0.0-0.3); EOSINOPHILS % (AUTO) 3 % (0-10); HEMATOCRIT 21 % (40-54); HEMOGLOBIN 7.1 g/dL (13.3-17.7); LYMPHOCYTES # (AUTO) 1.2 10^3/uL (1.0-4.0); LYMPHOCYTES % (AUTO) 9 % (12-44); MEAN CORPUSCULAR HEMOGLOBIN 30 pg (25-34); MEAN CORPUSCULAR HGB CONC 33 g/dL (32-36); MEAN CORPUSCULAR VOLUME 91 fL (80-99); MEAN PLATELET VOLUME 9.8 fL (9.0-12.2); MONOCYTES # (AUTO) 0.7 10^3/uL (0.0-1.0); MONOCYTES % (AUTO) 6 % (0-12); NEUTROPHILS # (AUTO) 9.2 10^3/uL (1.8-7.8); NEUTROPHILS % (AUTO) 73 % (42-75); PLATELET COUNT 181 10^3/uL (130-400); WHITE BLOOD COUNT 12.5 10^3/uL (4.3-11.0)
[2021-01-02 11:45] LABS: ALBUMIN 3.3 GM/DL (3.2-4.5); BILIRUBIN,TOTAL 0.6 MG/DL (0.1-1.0); CALCIUM 8.1 MG/DL (8.5-10.1); CREATININE SERUM 16.35 MG/DL (0.60-1.30); POTASSIUM 4.1 MMOL/L (3.6-5.0); TOTAL PROTEIN 5.9 GM/DL (6.4-8.2)
[2021-01-09 10:59] LABS: BASOPHILS # (AUTO) 0.2 10^3/uL (0.0-0.1); BASOPHILS % (AUTO) 0 % (0-10); EOSINOPHILS # (AUTO) 0.2 10^3/uL (0.0-0.3); EOSINOPHILS % (AUTO) 1 % (0-10); LYMPHOCYTES # (AUTO) 0.8 10^3/uL (1.0-4.0); LYMPHOCYTES % (AUTO) 2 % (12-44); MEAN CORPUSCULAR HEMOGLOBIN 31 pg (25-34); MEAN CORPUSCULAR HGB CONC 34 g/dL (32-36); MEAN CORPUSCULAR VOLUME 93 fL (80-99); MONOCYTES # (AUTO) 0.1 10^3/uL (0.0-1.0); MONOCYTES % (AUTO) 0 % (0-12); NEUTROPHILS # (AUTO) 32.1 10^3/uL (1.8-7.8); NEUTROPHILS % (AUTO) 82 % (42-75); PLATELET COUNT 140 10^3/uL (130-400)
[2021-01-09 11:04] LABS: HEMATOCRIT 18 % (40-54); HEMOGLOBIN 6.2 g/dL (13.3-17.7); WHITE BLOOD COUNT 39.2 10^3/uL (4.3-11.0)
[2021-01-09 11:06] LABS: CALCIUM 7.6 MG/DL (8.5-10.1); CREATININE SERUM 15.23 MG/DL (0.60-1.30); POTASSIUM 4.1 MMOL/L (3.6-5.0)
[2021-01-16 09:58] LABS: HEMATOCRIT 22 % (40-54)
[2021-01-16 10:00] LABS: BASOPHILS # (AUTO) 0.1 10^3/uL (0.0-0.1); BASOPHILS % (AUTO) 1 % (0-10); EOSINOPHILS # (AUTO) 0.4 10^3/uL (0.0-0.3); EOSINOPHILS % (AUTO) 4 % (0-10); HEMOGLOBIN 7.3 g/dL (13.3-17.7); LYMPHOCYTES # (AUTO) 0.9 10^3/uL (1.0-4.0); LYMPHOCYTES % (AUTO) 11 % (12-44); MEAN CORPUSCULAR HEMOGLOBIN 31 pg (25-34); MEAN CORPUSCULAR HGB CONC 33 g/dL (32-36); MEAN CORPUSCULAR VOLUME 94 fL (80-99); MEAN PLATELET VOLUME 9.8 fL (9.0-12.2); MONOCYTES # (AUTO) 0.4 10^3/uL (0.0-1.0); MONOCYTES % (AUTO) 5 % (0-12); NEUTROPHILS # (AUTO) 5.2 10^3/uL (1.8-7.8); NEUTROPHILS % (AUTO) 60 % (42-75); PLATELET COUNT 113 10^3/uL (130-400); WHITE BLOOD COUNT 8.6 10^3/uL (4.3-11.0)
[2021-01-16 10:14] LABS: CREATININE SERUM 15.24 MG/DL (0.60-1.30)
[2021-01-17 11:26] LABS: RETICULOCYTE % 3.15 % (0.50-2.40)
[2021-01-23 13:41] LABS: BASOPHILS # (AUTO) 0.1 10^3/uL (0.0-0.1); BASOPHILS % (AUTO) 1 % (0-10); EOSINOPHILS # (AUTO) 0.5 10^3/uL (0.0-0.3); EOSINOPHILS % (AUTO) 4 % (0-10); HEMATOCRIT 25 % (40-54); HEMOGLOBIN 8.6 g/dL (13.3-17.7); LYMPHOCYTES # (AUTO) 1.3 10^3/uL (1.0-4.0); LYMPHOCYTES % (AUTO) 9 % (12-44); MEAN CORPUSCULAR HEMOGLOBIN 32 pg (25-34); MEAN CORPUSCULAR HGB CONC 34 g/dL (32-36); MEAN CORPUSCULAR VOLUME 93 fL (80-99); MEAN PLATELET VOLUME 9.8 fL (9.0-12.2); MONOCYTES # (AUTO) 0.7 10^3/uL (0.0-1.0); MONOCYTES % (AUTO) 5 % (0-12); NEUTROPHILS % (AUTO) 72 % (42-75); PLATELET COUNT 218 10^3/uL (130-400); WHITE BLOOD COUNT 13.8 10^3/uL (4.3-11.0)
[2021-01-23 14:00] LABS: ALBUMIN 3.5 GM/DL (3.2-4.5); BILIRUBIN,TOTAL 0.5 MG/DL (0.1-1.0); CALCIUM 8.3 MG/DL (8.5-10.1); CREATININE SERUM 15.65 MG/DL (0.60-1.30); POTASSIUM 3.9 MMOL/L (3.6-5.0); TOTAL PROTEIN 6.3 GM/DL (6.4-8.2)
[2021-01-30 09:41] LABS: BASOPHILS % (AUTO) 0 % (0-10); EOSINOPHILS % (AUTO) 0 % (0-10); LYMPHOCYTES % (AUTO) 1 % (12-44); MEAN CORPUSCULAR HEMOGLOBIN 32 pg (25-34); MONOCYTES % (AUTO) 0 % (0-12); NEUTROPHILS % (AUTO) 82 % (42-75)
[2021-01-30 09:43] LABS: BASOPHILS # (AUTO) 0.1 10^3/uL (0.0-0.1); EOSINOPHILS # (AUTO) 0.1 10^3/uL (0.0-0.3); LYMPHOCYTES # (AUTO) 0.4 10^3/uL (1.0-4.0); MEAN CORPUSCULAR HGB CONC 34 g/dL (32-36); MEAN CORPUSCULAR VOLUME 93 fL (80-99); MONOCYTES # (AUTO) 0.1 10^3/uL (0.0-1.0); NEUTROPHILS # (AUTO) 25.9 10^3/uL (1.8-7.8); PLATELET COUNT 89 10^3/uL (130-400)
[2021-01-30 09:46] LABS: HEMATOCRIT 20 % (40-54); HEMOGLOBIN 6.8 g/dL (13.3-17.7); WHITE BLOOD COUNT 31.4 10^3/uL (4.3-11.0)
[2021-01-30 10:03] LABS: CALCIUM 8.5 MG/DL (8.5-10.1); CREATININE SERUM 15.09 MG/DL (0.60-1.30); POTASSIUM 3.8 MMOL/L (3.6-5.0)
[~2021-02-04] VITALS: Ht 177.8 cm; Wt 84.8 kg
[~2021-02-04 13:18] MED LIST changes: +ALTEPLASE 2 MG (CATHFLO) CANCER CENTER IV ONE; +ATEZOLIZUMAB 1,200 MG in NS (IVPB) CANCER CENTER 250 ML IV SCH; +ETOPOSIDE 100 MG in NORMAL SALINE (CANCER CENTER) 500 ML IV SCH; +FOSAPREPITANT (CANCER CENTER) 150 MG in NS (IVPB) CANCER CENTER ONLY 150 ML IV SCH; +NS (IVPB) CANCER CENTER 250 ML ONE; +NS IV 1000 ML (CANCER CTR) IV SCH; +NS IV 500 ML (CANCER CENTER) 500 ML ONE; +PEGFILGRASTIM-BMEZ 6 MG/0.6 ML ZIEXTENZO SQ SCH
[2021-02-04 13:29] LABS: BASOPHILS % (AUTO) 1 % (0-10); EOSINOPHILS # (AUTO) 0.1 10^3/uL (0.0-0.3); EOSINOPHILS % (AUTO) 4 % (0-10); LYMPHOCYTES # (AUTO) 0.4 10^3/uL (1.0-4.0); LYMPHOCYTES % (AUTO) 15 % (12-44); MEAN CORPUSCULAR HEMOGLOBIN 32 pg (25-34); MEAN CORPUSCULAR HGB CONC 34 g/dL (32-36); MEAN CORPUSCULAR VOLUME 95 fL (80-99); MEAN PLATELET VOLUME 11.1 fL (9.0-12.2); MONOCYTES # (AUTO) 0.3 10^3/uL (0.0-1.0); MONOCYTES % (AUTO) 9 % (0-12); NEUTROPHILS # (AUTO) 1.9 10^3/uL (1.8-7.8); NEUTROPHILS % (AUTO) 67 % (42-75); PLATELET COUNT 67 10^3/uL (130-400); WHITE BLOOD COUNT 2.8 10^3/uL (4.3-11.0)
[2021-02-04 13:31] LABS: HEMATOCRIT 19 % (40-54); HEMOGLOBIN 6.5 g/dL (13.3-17.7)
[2021-02-04 13:49] LABS: CALCIUM 8.6 MG/DL (8.5-10.1); POTASSIUM 3.7 MMOL/L (3.6-5.0)
[2021-02-04 13:50] LABS: CREATININE SERUM 15.86 MG/DL (0.60-1.30)
== END 2021-02-12 | disposition home or self-care (01) ==
LOC: ONC 13:18
PROVIDERS: ATTEND Internal Medicine Hematology & Oncology
DX: Z51.11 Encounter for antineoplastic chemotherapy (principal); C34.32 Malignant neoplasm of lower lobe, left bronchus or lung; C78.7 Secondary malignant neoplasm of liver and intrahepatic bile duct; I12.0 Hypertensive chronic kidney disease with stage 5 chronic kidney disease or end stage renal disease; N18.5 Chronic kidney disease, stage 5; Z98.890 Other specified postprocedural states; Z79.899 Other long term (current) drug therapy; Z87.891 Personal history of nicotine dependence
CPT/HCPCS: 80053; 83615; 85025; G0463; 36430; 36591; 36593; 80048; 82668; 82728; 83540; 83550; 84443; 85045; 86850; 86900; 86901; 86920; 96367; 96372; 96375; 96413; 96417; 99213; 99214

== ENCOUNTER → 2021-02-12 | Outpatient (CLI) | payer MEDICARE, OTHER ==
[~2021-02-12] MED LIST changes: -ALTEPLASE 2 MG (CATHFLO) CANCER CENTER IV ONE; -ATEZOLIZUMAB 1,200 MG in NS (IVPB) CANCER CENTER 250 ML IV SCH; -ETOPOSIDE 100 MG in NORMAL SALINE (CANCER CENTER) 500 ML IV SCH; -FOSAPREPITANT (CANCER CENTER) 150 MG in NS (IVPB) CANCER CENTER ONLY 150 ML IV SCH; -NS (IVPB) CANCER CENTER 250 ML ONE; -NS IV 1000 ML (CANCER CTR) IV SCH; -NS IV 500 ML (CANCER CENTER) 500 ML ONE; -PEGFILGRASTIM-BMEZ 6 MG/0.6 ML ZIEXTENZO SQ SCH
--- NOTE | 2021-02-12 14:21 | Diagnostic Imaging Report ---
INDICATION: Left lower lobe lung neoplasm. Study is performed for subsequent restaging and assess treatment response. Serum blood glucose level at the time of injection is 150 mg/dL. Patient was administered 14.5 mCi F-18 FDG intravenously in the right antecubital location and PET imaging was performed from the top of the skull to mid thighs. Noncontrast CT was also performed for attenuation correction and anatomic correlation. No prior imaging is available for comparison. There is symmetric activity throughout the brain. The soft tissues of the neck are unremarkable. Irregular opacity in the right lower lobe is noted demonstrating some hypermetabolism. The most superior component of the lesion measures approximately 2.9 x 1.8 cm and demonstrates an SUV max of 5.8. Component more posterior and laterally and slightly inferior measures 2.8 x 2.0 cm and demonstrates an SUV max of 3.9. There is some hypermetabolism in the infrahilar location which could be a hypermetabolic lymph node with SUV max of 4.7. No other suspicious regions of hypermetabolism are identified. There is physiologic activity throughout the gastrointestinal and genitourinary tracts of the abdomen and pelvis. Patient does have an infrarenal abdominal aortic aneurysm measuring 4.3 cm in AP diameter. There is some free fluid in the pelvis. Patient does have a peritoneal dialysis catheter. IMPRESSION: 1. There are some irregular hypermetabolic opacities in the right lower lobe, suspicious for neoplasm. There is also some hypermetabolism in the right infrahilar location suspicious for a hypermetabolic lymph node. 2. No suspicious hypermetabolic foci below the diaphragm are identified. Patient does have an infrarenal abdominal aortic aneurysm. Dictated by: Dictated on workstation # [id number]
== END ==
LOC: RAD 08:15
PROVIDERS: ATTEND Internal Medicine Hematology & Oncology
DX: C34.32 Malignant neoplasm of lower lobe, left bronchus or lung (principal); C78.7 Secondary malignant neoplasm of liver and intrahepatic bile duct
CPT/HCPCS: 78815; A9552

== ENCOUNTER → 2021-05-07 | Outpatient (CLI) | payer MEDICARE, OTHER ==
--- NOTE | 2021-05-07 13:32 | Diagnostic Imaging Report ---
INDICATION: Primary malignant neoplasm of the lower lobe of left lung with liver metastases. Study is performed for subsequent restaging and to assess response to treatment. TECHNIQUE: Serum blood glucose level at the time of injection is 92 mg/dL. Patient was administered 14.5 mCi F-18 FDG intravenously in the right antecubital location and PET imaging was performed from the top of the skull to mid thighs. Noncontrast CT was also performed for attenuation correction and anatomic correlation. COMPARISON: Correlation is made with prior PET/CT from 02/12/2021. FINDINGS: There is symmetric activity throughout the brain. Soft tissues of the neck are unremarkable. The original irregular opacities in the right lower lobe and right infrahilar region appear significantly improved on today's PET scan and are now barely visible and show very little hypermetabolic activity. However, there are new hypermetabolic foci present in the chest. There is a hypermetabolic lymph node in the AP window with an SUV max of 7.3. There is an irregular focus in the posterior left upper lobe with an SUV max of 3.6. This measures approximately 12 mm. A subpleural irregular opacity has developed in the right upper lobe measuring 11 mm. This demonstrate SUV max of 5.4. There also appear to be numerous low densities throughout the liver consistent with hepatic metastatic disease. Several of these show uptake. The remainder of the abdomen and pelvis are unremarkable. IMPRESSION: The primary malignancy in the right lower lobe does appear much improved. However, there is a new hypermetabolic lymph node in the mediastinum AP window as well as irregular hypermetabolic foci have developed in the left upper lobe and right upper lobe. In addition, there are increasing low-density lesions within the liver consistent with worsening hepatic metastatic disease. Dictated by: Dictated on workstation # [id number]
== END ==
LOC: RAD 09:45
PROVIDERS: ATTEND Nurse Practitioner Adult Health
DX: C34.32 Malignant neoplasm of lower lobe, left bronchus or lung (principal); C78.7 Secondary malignant neoplasm of liver and intrahepatic bile duct
CPT/HCPCS: 78815; A9552

== ENCOUNTER → 2021-05-14 | Outpatient (RCR) | payer MEDICARE, OTHER ==
[2021-02-13 10:32] LABS: BASOPHILS # (AUTO) 0.1 10^3/uL (0.0-0.1); BASOPHILS % (AUTO) 0 % (0-10); EOSINOPHILS # (AUTO) 0.2 10^3/uL (0.0-0.3); EOSINOPHILS % (AUTO) 2 % (0-10); HEMATOCRIT 23 % (40-54); HEMOGLOBIN 7.6 g/dL (13.3-17.7); LYMPHOCYTES # (AUTO) 1.2 10^3/uL (1.0-4.0); LYMPHOCYTES % (AUTO) 10 % (12-44); MEAN CORPUSCULAR HEMOGLOBIN 31 pg (25-34); MEAN CORPUSCULAR HGB CONC 33 g/dL (32-36); MEAN CORPUSCULAR VOLUME 94 fL (80-99); MEAN PLATELET VOLUME 9.3 fL (9.0-12.2); MONOCYTES # (AUTO) 0.6 10^3/uL (0.0-1.0); MONOCYTES % (AUTO) 5 % (0-12); NEUTROPHILS # (AUTO) 8.6 10^3/uL (1.8-7.8); NEUTROPHILS % (AUTO) 73 % (42-75); PLATELET COUNT 214 10^3/uL (130-400); WHITE BLOOD COUNT 11.7 10^3/uL (4.3-11.0)
[2021-02-13 10:49] LABS: ALBUMIN 2.9 GM/DL (3.2-4.5); BILIRUBIN,TOTAL 0.4 MG/DL (0.1-1.0); CALCIUM 8.3 MG/DL (8.5-10.1); CREATININE SERUM 15.41 MG/DL (0.60-1.30); POTASSIUM 3.5 MMOL/L (3.6-5.0); TOTAL PROTEIN 5.7 GM/DL (6.4-8.2)
[2021-02-20 09:40] LABS: BASOPHILS # (AUTO) 0.1 10^3/uL (0.0-0.1); BASOPHILS % (AUTO) 1 % (0-10); EOSINOPHILS # (AUTO) 0.2 10^3/uL (0.0-0.3); EOSINOPHILS % (AUTO) 3 % (0-10); HEMATOCRIT 23 % (40-54); HEMOGLOBIN 7.7 g/dL (13.3-17.7); LYMPHOCYTES # (AUTO) 0.8 10^3/uL (1.0-4.0); LYMPHOCYTES % (AUTO) 13 % (12-44); MEAN CORPUSCULAR HEMOGLOBIN 32 pg (25-34); MEAN CORPUSCULAR HGB CONC 33 g/dL (32-36); MEAN CORPUSCULAR VOLUME 95 fL (80-99); MEAN PLATELET VOLUME 9.2 fL (9.0-12.2); MONOCYTES # (AUTO) 0.6 10^3/uL (0.0-1.0); MONOCYTES % (AUTO) 9 % (0-12); NEUTROPHILS # (AUTO) 4.6 10^3/uL (1.8-7.8); NEUTROPHILS % (AUTO) 73 % (42-75); PLATELET COUNT 130 10^3/uL (130-400); WHITE BLOOD COUNT 6.3 10^3/uL (4.3-11.0)
[2021-02-20 10:03] LABS: ALBUMIN 3.1 GM/DL (3.2-4.5); BILIRUBIN,TOTAL 0.7 MG/DL (0.1-1.0); CALCIUM 8.9 MG/DL (8.5-10.1); CREATININE SERUM 14.12 MG/DL (0.60-1.30); POTASSIUM 3.9 MMOL/L (3.6-5.0)
[2021-03-13 11:09] LABS: BASOPHILS # (AUTO) 0.1 10^3/uL (0.0-0.1); BASOPHILS % (AUTO) 1 % (0-10); EOSINOPHILS # (AUTO) 0.8 10^3/uL (0.0-0.3); EOSINOPHILS % (AUTO) 12 % (0-10); HEMATOCRIT 26 % (40-54); HEMOGLOBIN 8.7 g/dL (13.3-17.7); LYMPHOCYTES # (AUTO) 1.1 10^3/uL (1.0-4.0); LYMPHOCYTES % (AUTO) 17 % (12-44); MEAN CORPUSCULAR HEMOGLOBIN 32 pg (25-34); MEAN CORPUSCULAR HGB CONC 34 g/dL (32-36); MEAN CORPUSCULAR VOLUME 95 fL (80-99); MEAN PLATELET VOLUME 9.3 fL (9.0-12.2); MONOCYTES # (AUTO) 0.4 10^3/uL (0.0-1.0); MONOCYTES % (AUTO) 6 % (0-12); NEUTROPHILS # (AUTO) 3.9 10^3/uL (1.8-7.8); NEUTROPHILS % (AUTO) 62 % (42-75); PLATELET COUNT 136 10^3/uL (130-400); WHITE BLOOD COUNT 6.2 10^3/uL (4.3-11.0)
[2021-03-13 11:36] LABS: ALBUMIN 3.5 GM/DL (3.2-4.5); BILIRUBIN,TOTAL 0.7 MG/DL (0.1-1.0); CALCIUM 9.1 MG/DL (8.5-10.1); CREATININE SERUM 14.81 MG/DL (0.60-1.30); POTASSIUM 4.3 MMOL/L (3.6-5.0); TOTAL PROTEIN 6.2 GM/DL (6.4-8.2)
[2021-04-02 11:00] LABS: BASOPHILS # (AUTO) 0.1 10^3/uL (0.0-0.1); BASOPHILS % (AUTO) 1 % (0-10); EOSINOPHILS # (AUTO) 0.6 10^3/uL (0.0-0.3); EOSINOPHILS % (AUTO) 11 % (0-10); HEMATOCRIT 28 % (40-54); HEMOGLOBIN 9.9 g/dL (13.3-17.7); LYMPHOCYTES # (AUTO) 1.1 10^3/uL (1.0-4.0); LYMPHOCYTES % (AUTO) 19 % (12-44); MEAN CORPUSCULAR HEMOGLOBIN 33 pg (25-34); MEAN CORPUSCULAR HGB CONC 35 g/dL (32-36); MEAN CORPUSCULAR VOLUME 93 fL (80-99); MEAN PLATELET VOLUME 9.4 fL (9.0-12.2); MONOCYTES # (AUTO) 0.4 10^3/uL (0.0-1.0); MONOCYTES % (AUTO) 7 % (0-12); NEUTROPHILS # (AUTO) 3.4 10^3/uL (1.8-7.8); NEUTROPHILS % (AUTO) 62 % (42-75); PLATELET COUNT 153 10^3/uL (130-400); WHITE BLOOD COUNT 5.6 10^3/uL (4.3-11.0)
[2021-04-02 11:19] LABS: ALBUMIN 3.7 GM/DL (3.2-4.5); BILIRUBIN,TOTAL 0.8 MG/DL (0.1-1.0); CALCIUM 9.6 MG/DL (8.5-10.1); CREATININE SERUM 16.67 MG/DL (0.60-1.30); POTASSIUM 4.2 MMOL/L (3.6-5.0); TOTAL PROTEIN 6.6 GM/DL (6.4-8.2)
[2021-04-23 11:12] LABS: BASOPHILS % (AUTO) 1 % (0-10); EOSINOPHILS # (AUTO) 0.5 10^3/uL (0.0-0.3); EOSINOPHILS % (AUTO) 9 % (0-10); HEMATOCRIT 27 % (40-54); HEMOGLOBIN 9.2 g/dL (13.3-17.7); LYMPHOCYTES # (AUTO) 0.9 10^3/uL (1.0-4.0); LYMPHOCYTES % (AUTO) 17 % (12-44); MEAN CORPUSCULAR HEMOGLOBIN 32 pg (25-34); MEAN CORPUSCULAR HGB CONC 35 g/dL (32-36); MEAN CORPUSCULAR VOLUME 91 fL (80-99); MONOCYTES # (AUTO) 0.5 10^3/uL (0.0-1.0); MONOCYTES % (AUTO) 9 % (0-12); NEUTROPHILS # (AUTO) 3.1 10^3/uL (1.8-7.8); NEUTROPHILS % (AUTO) 63 % (42-75); PLATELET COUNT 140 10^3/uL (130-400)
[2021-04-23 11:49] LABS: ALBUMIN 3.5 GM/DL (3.2-4.5); BILIRUBIN,TOTAL 0.7 MG/DL (0.1-1.0); CALCIUM 9.2 MG/DL (8.5-10.1); CREATININE SERUM 15.3 MG/DL (0.60-1.30); POTASSIUM 3.8 MMOL/L (3.6-5.0); TOTAL PROTEIN 6.3 GM/DL (6.4-8.2)
[~2021-05-14] MED LIST changes: +ATEZOLIZUMAB 1,200 MG in NS (IVPB) CANCER CENTER 250 ML IV SCH; +ETOPOSIDE 100 MG in NORMAL SALINE (CANCER CENTER) 500 ML IV SCH; +FOSAPREPITANT (CANCER CENTER) 150 MG in NS (IVPB) CANCER CENTER ONLY 150 ML IV SCH; +NS IV 1000 ML (CANCER CTR) IV SCH; +PEGFILGRASTIM-BMEZ 6 MG/0.6 ML ZIEXTENZO SQ SCH
[2021-05-14 10:35] LABS: BASOPHILS # (AUTO) 0.1 10^3/uL (0.0-0.1); BASOPHILS % (AUTO) 1 % (0-10); EOSINOPHILS # (AUTO) 0.4 10^3/uL (0.0-0.3); EOSINOPHILS % (AUTO) 6 % (0-10); HEMATOCRIT 26 % (40-54); HEMOGLOBIN 8.8 g/dL (13.3-17.7); LYMPHOCYTES # (AUTO) 0.9 10^3/uL (1.0-4.0); LYMPHOCYTES % (AUTO) 12 % (12-44); MEAN CORPUSCULAR HEMOGLOBIN 31 pg (25-34); MEAN CORPUSCULAR HGB CONC 34 g/dL (32-36); MEAN CORPUSCULAR VOLUME 94 fL (80-99); MEAN PLATELET VOLUME 8.9 fL (9.0-12.2); MONOCYTES # (AUTO) 0.4 10^3/uL (0.0-1.0); MONOCYTES % (AUTO) 6 % (0-12); NEUTROPHILS # (AUTO) 5.6 10^3/uL (1.8-7.8); NEUTROPHILS % (AUTO) 74 % (42-75); PLATELET COUNT 164 10^3/uL (130-400); WHITE BLOOD COUNT 7.5 10^3/uL (4.3-11.0)
[2021-05-14 10:54] LABS: ALBUMIN 3.1 GM/DL (3.2-4.5); BILIRUBIN,TOTAL 0.4 MG/DL (0.1-1.0); CALCIUM 8.7 MG/DL (8.5-10.1); CREATININE SERUM 13.94 MG/DL (0.60-1.30); POTASSIUM 3.6 MMOL/L (3.6-5.0); TOTAL PROTEIN 5.8 GM/DL (6.4-8.2)
== END | disposition home or self-care (01) ==
LOC: ONC 02-13 10:06
PROVIDERS: ATTEND Internal Medicine Hematology & Oncology
DX: Z51.11 Encounter for antineoplastic chemotherapy (principal); Z45.2 Encounter for adjustment and management of vascular access device; C34.32 Malignant neoplasm of lower lobe, left bronchus or lung; C78.7 Secondary malignant neoplasm of liver and intrahepatic bile duct; I12.0 Hypertensive chronic kidney disease with stage 5 chronic kidney disease or end stage renal disease; N18.5 Chronic kidney disease, stage 5; D63.1 Anemia in chronic kidney disease; Z98.890 Other specified postprocedural states; Z79.899 Other long term (current) drug therapy; Z92.21 Personal history of antineoplastic chemotherapy
CPT/HCPCS: 80053; 83615; 85025; G0463; 36430; 36591; 84443; 86850; 86900; 86901; 86920; 96413; 99213

== ENCOUNTER 2021-07-10 08:45 | Outpatient (RCR) | payer MEDICARE, OTHER ==
[2021-05-29 15:11] LABS: BASOPHILS % (AUTO) 1 % (0-10); EOSINOPHILS # (AUTO) 0.8 10^3/uL (0.0-0.3); EOSINOPHILS % (AUTO) 14 % (0-10); HEMATOCRIT 26 % (40-54); HEMOGLOBIN 8.9 g/dL (13.3-17.7); LYMPHOCYTES # (AUTO) 1.2 X 10^3 (1.0-4.0); LYMPHOCYTES % (AUTO) 21 % (12-44); MEAN CORPUSCULAR HEMOGLOBIN 32 pg (25-34); MEAN CORPUSCULAR HGB CONC 35 g/dL (32-36); MEAN CORPUSCULAR VOLUME 93 fL (80-99); MONOCYTES # (AUTO) 0.4 X 10^3 (0.0-1.0); MONOCYTES % (AUTO) 6 % (0-12); NEUTROPHILS # (AUTO) 3.2 X 10^3 (1.8-7.8); NEUTROPHILS % (AUTO) 58 % (42-75); PLATELET COUNT 150 10^3/uL (130-400); WHITE BLOOD COUNT 5.6 10^3/uL (4.3-11.0)
[2021-05-29 15:32] LABS: ALBUMIN 3.2 GM/DL (3.2-4.5); BILIRUBIN,TOTAL 0.5 MG/DL (0.1-1.0); CALCIUM 8.8 MG/DL (8.5-10.1); CREATININE SERUM 14.43 MG/DL (0.60-1.30); POTASSIUM 4.4 MMOL/L (3.6-5.0); TOTAL PROTEIN 6.3 GM/DL (6.4-8.2)
[2021-06-05 09:24] LABS: EOSINOPHILS % (AUTO) 0 % (0-10); LYMPHOCYTES # (AUTO) 0.2 10^3/uL (1.0-4.0)
[2021-06-05 09:26] LABS: BASOPHILS % (AUTO) 0 % (0-10); HEMATOCRIT 25 % (40-54); HEMOGLOBIN 8.5 g/dL (13.3-17.7); LYMPHOCYTES % (AUTO) 7 % (12-44); MEAN CORPUSCULAR HEMOGLOBIN 31 pg (25-34); MEAN CORPUSCULAR HGB CONC 34 g/dL (32-36); MEAN CORPUSCULAR VOLUME 92 fL (80-99); MEAN PLATELET VOLUME 9.9 fL (9.0-12.2); MONOCYTES % (AUTO) 1 % (0-12); NEUTROPHILS % (AUTO) 91 % (42-75); PLATELET COUNT 126 10^3/uL (130-400); WHITE BLOOD COUNT 3.3 10^3/uL (4.3-11.0)
[2021-06-05 09:39] LABS: CALCIUM 8.9 MG/DL (8.5-10.1); CREATININE SERUM 14.19 MG/DL (0.60-1.30); POTASSIUM 4.2 MMOL/L (3.6-5.0)
[2021-06-13 09:10] LABS: BASOPHILS % (AUTO) 1 % (0-10); EOSINOPHILS % (AUTO) 1 % (0-10); HEMATOCRIT 23 % (40-54); HEMOGLOBIN 7.8 g/dL (13.3-17.7); LYMPHOCYTES # (AUTO) 0.3 10^3/uL (1.0-4.0); LYMPHOCYTES % (AUTO) 16 % (12-44); MEAN CORPUSCULAR HEMOGLOBIN 31 pg (25-34); MEAN CORPUSCULAR HGB CONC 34 g/dL (32-36); MEAN CORPUSCULAR VOLUME 90 fL (80-99); MEAN PLATELET VOLUME 9.4 fL (9.0-12.2); MONOCYTES % (AUTO) 2 % (0-12); NEUTROPHILS # (AUTO) 1.3 10^3/uL (1.8-7.8); NEUTROPHILS % (AUTO) 79 % (42-75); PLATELET COUNT 143 10^3/uL (130-400); WHITE BLOOD COUNT 1.7 10^3/uL (4.3-11.0)
[2021-06-13 09:33] LABS: CALCIUM 8.4 MG/DL (8.5-10.1); CREATININE SERUM 15.11 MG/DL (0.60-1.30); POTASSIUM 3.3 MMOL/L (3.6-5.0)
[2021-06-20 08:22] LABS: BASOPHILS % (AUTO) 1 % (0-10); EOSINOPHILS # (AUTO) 0.3 10^3/uL (0.0-0.3); EOSINOPHILS % (AUTO) 8 % (0-10); HEMATOCRIT 21 % (40-54); HEMOGLOBIN 7.2 g/dL (13.3-17.7); LYMPHOCYTES # (AUTO) 0.8 10^3/uL (1.0-4.0); LYMPHOCYTES % (AUTO) 26 % (12-44); MEAN CORPUSCULAR HEMOGLOBIN 31 pg (25-34); MEAN CORPUSCULAR HGB CONC 34 g/dL (32-36); MEAN CORPUSCULAR VOLUME 92 fL (80-99); MEAN PLATELET VOLUME 9.4 fL (9.0-12.2); MONOCYTES # (AUTO) 0.2 10^3/uL (0.0-1.0); MONOCYTES % (AUTO) 7 % (0-12); NEUTROPHILS # (AUTO) 1.8 10^3/uL (1.8-7.8); NEUTROPHILS % (AUTO) 57 % (42-75); PLATELET COUNT 136 10^3/uL (130-400); WHITE BLOOD COUNT 3.2 10^3/uL (4.3-11.0)
[2021-06-20 08:42] LABS: CREATININE SERUM 14.78 MG/DL (0.60-1.30)
[2021-06-20 11:37] LABS: MAGNESIUM 1.6 MG/DL (1.6-2.4)
[2021-06-26 09:48] LABS: BASOPHILS % (AUTO) 1 % (0-10)
[2021-06-26 09:50] LABS: EOSINOPHILS # (AUTO) 0.4 10^3/uL (0.0-0.3); EOSINOPHILS % (AUTO) 8 % (0-10); HEMATOCRIT 23 % (40-54); HEMOGLOBIN 7.6 g/dL (13.3-17.7); LYMPHOCYTES # (AUTO) 0.8 10^3/uL (1.0-4.0); LYMPHOCYTES % (AUTO) 17 % (12-44); MEAN CORPUSCULAR HEMOGLOBIN 31 pg (25-34); MEAN CORPUSCULAR HGB CONC 33 g/dL (32-36); MEAN CORPUSCULAR VOLUME 93 fL (80-99); MEAN PLATELET VOLUME 9.4 fL (9.0-12.2); MONOCYTES # (AUTO) 0.5 10^3/uL (0.0-1.0); MONOCYTES % (AUTO) 10 % (0-12); NEUTROPHILS # (AUTO) 3.1 10^3/uL (1.8-7.8); NEUTROPHILS % (AUTO) 63 % (42-75); PLATELET COUNT 147 10^3/uL (130-400); WHITE BLOOD COUNT 4.9 10^3/uL (4.3-11.0)
[2021-06-26 10:13] LABS: ALBUMIN 3.1 GM/DL (3.2-4.5); BILIRUBIN,TOTAL 0.6 MG/DL (0.1-1.0); CALCIUM 8.6 MG/DL (8.5-10.1); CREATININE SERUM 13.49 MG/DL (0.60-1.30); POTASSIUM 4.6 MMOL/L (3.6-5.0); TOTAL PROTEIN 5.6 GM/DL (6.4-8.2)
[2021-07-03 08:56] LABS: BASOPHILS % (AUTO) 1 % (0-10); EOSINOPHILS # (AUTO) 0.4 10^3/uL (0.0-0.3); EOSINOPHILS % (AUTO) 8 % (0-10); HEMATOCRIT 22 % (40-54); HEMOGLOBIN 7.2 g/dL (13.3-17.7); LYMPHOCYTES # (AUTO) 0.9 10^3/uL (1.0-4.0); LYMPHOCYTES % (AUTO) 19 % (12-44); MEAN CORPUSCULAR HEMOGLOBIN 31 pg (25-34); MEAN CORPUSCULAR HGB CONC 33 g/dL (32-36); MEAN CORPUSCULAR VOLUME 94 fL (80-99); MEAN PLATELET VOLUME 9.7 fL (9.0-12.2); MONOCYTES # (AUTO) 0.4 10^3/uL (0.0-1.0); MONOCYTES % (AUTO) 9 % (0-12); NEUTROPHILS # (AUTO) 3.1 10^3/uL (1.8-7.8); NEUTROPHILS % (AUTO) 63 % (42-75); PLATELET COUNT 132 10^3/uL (130-400)
[2021-07-03 09:14] LABS: CALCIUM 8.5 MG/DL (8.5-10.1); CREATININE SERUM 13.6 MG/DL (0.60-1.30); POTASSIUM 4.5 MMOL/L (3.6-5.0)
[~2021-07-10] VITALS: Ht 177.8 cm; Wt 76.2 kg
[~2021-07-10 08:45] MED LIST changes: -ATEZOLIZUMAB 1,200 MG in NS (IVPB) CANCER CENTER 250 ML IV SCH; -ETOPOSIDE 100 MG in NORMAL SALINE (CANCER CENTER) 500 ML IV SCH; +FAMOTIDINE 20MG/2ML IV (CANCER CTR) IV SCH; -FOSAPREPITANT (CANCER CENTER) 150 MG in NS (IVPB) CANCER CENTER ONLY 150 ML IV SCH; -PEGFILGRASTIM-BMEZ 6 MG/0.6 ML ZIEXTENZO SQ SCH; +diphenhydrAMINE 25 MG TAB (BENADRYL) CANCER CENTER PO SCH; +diphenhydrAMINE 50 MG/ML INJ (CANCER CENTER) IV PRN
[2021-07-10 09:00] LABS: ABSOLUTE RETIC # 15 10e9/uL (24-90); BASOPHILS % (AUTO) 1 % (0-10); EOSINOPHILS # (AUTO) 0.2 10^3/uL (0.0-0.3); EOSINOPHILS % (AUTO) 4 % (0-10); HEMATOCRIT 23 % (40-54); HEMOGLOBIN 7.6 g/dL (13.3-17.7); LYMPHOCYTES # (AUTO) 0.7 10^3/uL (1.0-4.0); LYMPHOCYTES % (AUTO) 12 % (12-44); MEAN CORPUSCULAR HEMOGLOBIN 31 pg (25-34); MEAN CORPUSCULAR HGB CONC 34 g/dL (32-36); MEAN CORPUSCULAR VOLUME 92 fL (80-99); MEAN PLATELET VOLUME 9.5 fL (9.0-12.2); MONOCYTES # (AUTO) 0.4 10^3/uL (0.0-1.0); MONOCYTES % (AUTO) 6 % (0-12); NEUTROPHILS # (AUTO) 4.7 10^3/uL (1.8-7.8); NEUTROPHILS % (AUTO) 76 % (42-75); PLATELET COUNT 142 10^3/uL (130-400); RETICULOCYTE % 0.63 % (0.50-2.40); WHITE BLOOD COUNT 6.1 10^3/uL (4.3-11.0)
[2021-07-10 09:15] LABS: CALCIUM 9.5 MG/DL (8.5-10.1); CREATININE SERUM 13.87 MG/DL (0.60-1.30); POTASSIUM 4.3 MMOL/L (3.6-5.0)
== END 2021-07-12 | disposition home or self-care (01) ==
LOC: ONC 08:45
PROVIDERS: ATTEND Internal Medicine Hematology & Oncology
DX: Z51.11 Encounter for antineoplastic chemotherapy (principal); C34.32 Malignant neoplasm of lower lobe, left bronchus or lung; C78.7 Secondary malignant neoplasm of liver and intrahepatic bile duct; I12.0 Hypertensive chronic kidney disease with stage 5 chronic kidney disease or end stage renal disease; N18.5 Chronic kidney disease, stage 5; D63.1 Anemia in chronic kidney disease; Z98.890 Other specified postprocedural states; Z79.899 Other long term (current) drug therapy
CPT/HCPCS: 80053; 83615; 85025; G0463; 36430; 36591; 80048; 83735; 85045; 86850; 86900; 86901; 86920; 96375; 96413; 99213

== ENCOUNTER 2021-07-22 00:22 | Emergency (ER) | payer MEDICARE, OTHER ==
[~2021-07-22] VITALS: Ht 177.8 cm; Wt 68.0 kg
[~2021-07-22 00:22] MED LIST changes: -FAMOTIDINE 20MG/2ML IV (CANCER CTR) IV SCH; -NS IV 1000 ML (CANCER CTR) IV SCH; -diphenhydrAMINE 25 MG TAB (BENADRYL) CANCER CENTER PO SCH; -diphenhydrAMINE 50 MG/ML INJ (CANCER CENTER) IV PRN
--- OUTSIDE RECORDS SUMMARY | 2021-07-22 00:28 | XMS REPORT | Clinical Summary ---
Author Author [facility] Organization [facility] Address Unknown Phone Unavailable Care Team Providers Care Neighborhood Coordinator Name Role Phone RobinEliseo Unavailable Unavailable Dc Nichols MD [phone] Database, Physician Not In PCP Unavailable Gilma Wilcox DO Unavailable Source Comments Some departments are not documenting in the electronic medical record. If you d o not see the information that you expected, contact Release of Information in [facility] Information Management department at [phone] for further assistan ce in locating additional records.[facility] Allergies No known active allergies Medications End Date Status Medication Sig Dispensed Refills Start Date Active sertraline (ZOLOFT) 50 mg Take 50 mg by 0 tablet mouth daily. Active omeprazole DR(+) Take 20 mg by 0 (PRILOSEC) 20 mg capsule mouth twice daily. Active allopurinol (ZYLOPRIM) Take 300 mg 0 300 mg tablet by mouth daily. Take with food. Active furosemide (LASIX) 40 mg Take 40 mg by 5 02/27 tablet mouth daily. 7 Active gentamicin 0.1 % topical Apply 0 cream topically to affected area daily. Active folic ac/vit Take 1 tablet 0 Bcomp,C/Zn/vit D3 by mouth (DIALYVITE 800-ULTRA D daily. PO) Active carvedilol (COREG) 6.25 Take 6.25 mg 0 mg tablet by mouth twice daily with meals. Take with food. Active cinacalcet (SENSIPAR) 30 Take 1 tablet 0 mg tab by mouth every 24 hours. Active VENTOLIN HFA 90 Inhale two 18 g 11 mcg/actuation aerosol puffs by 0 inhaler mouth into the lungs every 6 hours as needed for Wheezing or Shortness of Breath. Shake well before use. Active budesonide-formoterol Inhale two 30.6 g 3 (SYMBICORT HFA) 160-4.5 puffs by 0 mcg/actuation inhalation mouth into the lungs twice daily. Active tiotropium (SPIRIVA) 18 Place one 90 capsule 3 mcg capsule for inhaler capsule into 0 inhaler and inhale into lungs as directed daily. Active pravastatin (PRAVACHOL) Take one 90 tablet 2 20 mg tabletIndications: tablet by 0 hypertriglyceridemia mouth at bedtime daily. Indications: high amount of triglyceride in the blood Active calcium acetate(phosphat TAKE THREE 0 12/13 bind) (PHOSLO) 667 mg CAPSULES BY 0 capsule MOUTH THREE TIMES A DAY AND TAKE TWO CAPSULES THREE TIMES A DAY FOR REDUCING PHOSPHORUS.TA KE WITH FOOD TAKE THREE CAPSULES WITH MEALS AND TWO CAPSULES WITH SNACKS Active omega-3 fatty acids/fish Take 2,000 mg 0 oil (FISH OIL OMEGA 3-6-9 by mouth PO) twice daily. Active calcitrioL (ROCALTROL) Take 0.25 mcg 0 02 0.25 mcg capsule by mouth 1 daily. Active cholecalciferol (vitamin TAKE 1 0 10/05 D3) (OPTIMAL D3) 50,000 CAPSULE BY 1 units capsule MOUTH ONCE A WEEK WITH A FATTY MEAL Active magnesium oxide 400 mg 0 magnesium tab 1 Active doxazosin (CARDURA) 2 mg Take 2 mg by 0 09/13 tablet mouth at 1 bedtime daily. Active mirtazapine (REMERON) 15 Take 15 mg by 0 09/19 mg tablet mouth at 1 bedtime daily. Active other medication Take 1 Dose 0 by mouth every 4 hours as needed. Auryxia 210 mg Iron. Take 1 tablet by mouth with each meal and each snack Active Problems Problem Noted Date Small cell lung cancer 11/09/2020 Overview: Formatting of this note might be differ ent from the original. This is 65 year old male on peritoneal dialysis for chronic end stage kidney disease who had workup at [facility] r lung infiltrates. 09/26/20 - CT chest without contrast- ,C onsiderable increase in size of clustered medial left lower lobe nodule s with enlarging mediastinal and left hilar lymphadenopathy and numerous new hypoattenuating liver lesions most compatible with advanced malignancy either metastases or advance d primary lung cancer. 10/19/20 - PET scan- Hypermetabolic nodul arity along the medial left lower lobe. Hypermetabolic mediastinal and le ft hilar lymph nodes compatible with metastases. Numerous hypermetabolic hep atic lesions compatible with metastases. Development of pneumoperito neum which is likely related to peritoneal dialysis catheter. Focal hyp ermetabolism within the right hip joint space which would be atypical for metastasis and is likely inflammatory or secondary to focal nodu lar synovitis. Attention with cancer surveillance recommended. 10/26/20 - Bronch, EBUS, Path: High Grad e Neuroendocrine Carcinoma, favor small cell carcinoma of lung Last Assessment & Plan: Formatting of this note might be differ ent from the original. He is here for medical oncology consult ation. He is on peritoneal dialysis. I reviewed his past records, work up he re in [facility] for lung mass with CT scan, PET scan and EBUS biopsy. He is ambulat ory and functional, has been in peritoneal dialysis for last 5 years. H is imaging confirm that it is stage 4 disease (Extensive stage small cell) lung cancer. I reviewed the diagnosis, prognosis of extensive stage small cell and treatment options. It is incurable disease, may respond we ll to treatment in early but it is chemotherapy resident in recurrent stag e. His renal failure and dialysis makes more complicated treatment choice s. I recommend first line treatment with c arboplatin, etoposide and atezolizumab combination for extensive stage small cell carcinoma. I reviewed with oncology pharmacy and dis cussed chemotherapy dosing. We came up with a Carboplatin 25% (AUC1.5) on n on dialysis day, Etoposide 50% of original dose (50mg/m2) on days 1-3 and Atezolizumab at normal dose (No renal dose adjustment needed). Patient is from [facility] and it is significant driving distance. I recomme nd him to get this palliative treatment locally. I will refer him to Dr. Lorena Cooper locally. Addendum- I called Dr. Dailey and disc ussed this patient, will send this consultation note and other records. Abnormal PET scan, lung 10/26/2020 Nonrheumatic mitral valve regurgitation 08/28/2020 Moderate COPD (chronic obstructive pulmonary disease) 04/02/2020 Last Assessment & Plan: Formatting of this note might be differ ent from the original. Continue triple therapy. Exacerbation x 1 in last year. Pulmonary nodule 04/02/2020 Last Assessment & Plan: Formatting of this note might be differ ent from the original. CT scan overall showing concerning area in medial aspect of LLL. We reviewed images together, but I did not have a finalized report at that time. I discussed with them that I anti cipate we will need to do a PET scan and that he will likely need a biopsy i n the future. Final reading was communicated to pt by phone following v jimbo with PET scan ordered. Discussed with Dr. Calixto as well. Abdominal aortic aneurysm (AAA) without rupture 10/2017 Coronary artery disease involving pokagon coronary art [place] of pokagon heart 04/07/2017 without angina pectoris Pre-transplant evaluation for kidney transplant 04/13 FSGS (focal segmental glomerulosclerosis) 05/02/2016 ESRD on peritoneal dialysis 05/02/2016 Last Assessment & Plan: Formatting of this note might be differ ent from the original. Currently in process of being placed on transplant list Essential hypertension 05/02/2016 Past use of tobacco 05/02/2016 Surgical History Surgery Date Site/Laterality Comments HX ACL RECONSTRUCTION HX HERNIA REPAIR 12/31/15 COLONOSCOPY 05/21/2018 N/A COLONOSCOPY per formed by Law Peña MD at END[facility] COLONOSCOPY 05/21/2018 COLONOSCOPY EXCISIO N LESION performed by Law Peña MD at ENDO/GI PERCUTANEOUS CORONARY 04/07/2017 N/A Possible Percutaneous Coronary Intervention INTERVENTION performed by Ernie Mitchell MD at [facility] COLONOSCOPY 01/19/2017 N/A COLONOSCOPY per formed by Law Peña MD at ENDO/GI COLONOSCOPY 01/19/2017 COLONOSCOPY BIOPSY performed by Law Peña MD at ENDO/GI COLONOSCOPY 01/19/2017 COLONOSCOPY EXCISIO N LESION performed by Law Peña MD at ENDO/GI BRONCHOSCOPY 10/26/2020 Bronchus/N/A BRONCHOSCOPY WI ENDOBRONCHIAL ULTRASOUND GUIDED TRANSTRACHEAL/ TRANSBRONCHIAL SAMPLING - 3 OR MORE MEDIASTINAL/ HILAR LYMPH NODE STATIONS/ STRUCTURE - FLEXIBLE performed by Jake Craft MD at [facility] OR Medical History Medical History Date Comments HTN (hypertension) GERD (gastroesophageal reflux disease) Depression Anxiety HLD (hyperlipidemia) Smoker Quit 2 weeks ago ESRD (end stage renal disease) on on PD dialysis (HCC) Polyp of colon Family History Medical History Relation Name Comments Dialysis Brother None Reported Brother None Reported Brother None Reported Daughter Heart Attack Father age 62 None Reported Maternal Grandfather None Reported Maternal Grandmother Heart Disease Mother around age 70 Dialysis Other Nephew None Reported Paternal Grandfather None Reported Paternal Grandmother None Reported Sister Diabetes Sister None Reported Son Relation Name Status Comments Brother Brother Alive Brother Alive Daughter Alive Father Maternal Grandfather Maternal Grandmother Mother Other Nephew Other Paternal Grandfather Paternal Grandmother Sister Alive Sister Son Alive Social History Date Tobacco Use Types Packs/Day Years Used Quit: 2016 Former Smoker Cigarettes 1 45 Smokeless Tobacco: Never Used Tobacco Cessation: Ready to Quit: Yes Comments Alcohol Use Standard Drinks/Week 1 beer every six months Not Currently 0 (1 standard drink = 0.6 o z pure alcohol) Sex Assigned at Date Recorded Male 12/19/2019 11:48 AM CDT Last Filed Vital Signs Reading Time Taken Comments Vital Sign 166/105 11/06/2020 4:02 PM CDT Blood Pressure 76 11/06/2020 4:02 PM CDT Pulse 36.8 C (98.3 F) 11/06/2020 4:02 PM CDT Temperature 16 11/06/2020 4:02 PM CDT Respiratory Rate 98% 11/06/2020 4:02 PM CDT Oxygen Saturation - - Inhaled Oxygen Concentration 85.5 kg (188 lb 9.6 oz) 11/06/2020 4:02 PM CDT Weight 177.8 cm (5' 10") 11/06/2020 4:02 PM CDT Height 27.06 11/06/2020 4:02 PM CDT Body Mass Index Plan of Treatment Health Maintenance Due Date Last Done Comments PNEUMONIA (PPSV23) 01/17/1960 VACCINE (1 of 4 - PCV13) DTAP/TDAP VACCINES (1 - 01/17/1972 Tdap) PHYSICAL (COMPREHENSIVE) 01/17/1972 EXAM SHINGLES RECOMBINANT 01/17/2004 VACCINE (1 of 2) ABDOMINAL AORTIC ANEURYSM 2019 SCREENING INFLUENZA VACCINE 02/10/2021 03/29/2012, 04/16/2011, 03/30/2009, Additional history exists COLORECTAL CANCER 05/21/2028 05/21/2018, SCREENING 05/21/2018, 05/21/2018, Additional history exists HEPATITIS C SCREENING Completed 07/26/2020, 06/14/2019, 06/08/2018, Additional history exists Results Not on filefrom Last 3 Months Insurance Type Payer Benefit Subscriber ID Effective Phone Address Plan / Dates Group AETNA AETNA [id number] 2019-P [address] [address] [place] [address] Medicare MEDICARE MEDICARE [id number] [address] AND -Present [address] [place] [address] [phone] (Home) [place] [address] Robin Vazquez Jr. Transplant Self [address] (Home) [place] [address] Advance Directives Patient Chef Kitchen Manager Explanation Type Date Recorded Advance 04/07/2017 9:56 AM Directive/DPOA Care Teams Start Date End Date Neighborhood Coordinator Relationship Specialty 06/14/19 Database, Physician Not PCP - General In 03/20/16 Eliseo Kelly 04/03/17 Dc Nichols MD Consulting [facility]ascul [address] [facility] [place] [address] 11/05/20 Gilma Wilcox DO Nephrology [address] [place] [id number]
[2021-07-22 00:35] LABS: BASOPHILS # (AUTO) 0.1 10^3/uL (0.0-0.1); BASOPHILS % (AUTO) 1 % (0-10); EOSINOPHILS # (AUTO) 0.3 10^3/uL (0.0-0.3); EOSINOPHILS % (AUTO) 5 % (0-10); HEMATOCRIT 24 % (40-54); HEMOGLOBIN 8.2 g/dL (13.3-17.7); LYMPHOCYTES % (AUTO) 15 % (12-44); MEAN CORPUSCULAR HEMOGLOBIN 31 pg (25-34); MEAN CORPUSCULAR HGB CONC 35 g/dL (32-36); MEAN CORPUSCULAR VOLUME 91 fL (80-99); MEAN PLATELET VOLUME 9.1 fL (9.0-12.2); MONOCYTES # (AUTO) 0.8 10^3/uL (0.0-1.0); MONOCYTES % (AUTO) 11 % (0-12); NEUTROPHILS # (AUTO) 4.4 10^3/uL (1.8-7.8); NEUTROPHILS % (AUTO) 63 % (42-75); PLATELET COUNT 141 10^3/uL (130-400); WHITE BLOOD COUNT 6.9 10^3/uL (4.3-11.0)
[2021-07-22 00:47] LABS: ALBUMIN 3.2 GM/DL (3.2-4.5); POTASSIUM 3.3 MMOL/L (3.6-5.0)
[2021-07-22 00:49] LABS: CALCIUM 8.6 MG/DL (8.5-10.1)
[2021-07-22 00:52] LABS: BILIRUBIN,TOTAL 0.4 MG/DL (0.1-1.0)
[2021-07-22 00:53] LABS: CREATININE SERUM 15.5 MG/DL (0.60-1.30)
[2021-07-22 00:56] LABS: MAGNESIUM 1.4 MG/DL (1.6-2.4)
[2021-07-22] MEDS ORDERED: NS (IVPB) 250 ML IV ONE (01:00)
[2021-07-22 01:20] VITALS: BP_SYST 102; BP_SYST 110; BP_SYST 117; BP_DIAS 68; BP_DIAS 71; BP_DIAS 79
--- NOTE | 2021-07-22 02:28 | ED Fall/Injury ---
General Chief Complaint: General Problems/Pain Stated Complaint: FALL;WEAK;LOW BP Nursing Triage Note: ARRIVES VIA EMS TO ROOM 03. A&OX3, NOTED BRUISE TO LEFT UPPER FOREHEAD AND SKIN TEAR TO LEFT HAND, COVERED WITH A BANDAID. STATES HE HAD A FALL ON HIS WAY FROM THE BATHROOM THIS EVENING. DENIES LOC. STATES HAS HAD SOME ISSUE WITH LOW BLOOD PRESSURE AND LOW HGB WITH TRANSFUSION LAST WEEK AND LOW BP THIS EVENING PRIOR TO HIS FALL Source: patient Exam Limitations: no limitations History of Present Illness Date Seen by Provider: Jul 22, 2021 Time Seen by Provider: 00:25 Initial Comments This 66-year-old gentleman presents to the emergency room via EMS after having a fall in his home. He was ambulating from the bathroom when he became too weak to continue ambulating. He fell and struck his left forehead on the floor. He denies loss of consciousness. He has a contusion on his left forehead. He had a similar episode of weakness last week and was seen at [facility] where he received a transfusion due to significant anemia. He was in the middle of his peritoneal dialysis treatments when the incident happened. He had done 2 or 3 of the 7 treatments he does every night. He receives nephrology care at [facility] in [place]. He has received cancer care for his lung cancer with metastases to the liver at [facility] with some chemotherapy treatments being administered in [place]. He is potentially interested in transferring his oncology care to [facility] as well. Allergies and Home Medications Allergies Coded Allergies: No Known Drug Allergies (Unverified , 07/22/21) Patient Home Medication List Home Medication List Reviewed: Yes Albuterol Sulfate (Ventolin Hfa) 1 Puff Puff, 2 PUFF INH Q4H PRN for WHEEZING, (Reported) Entered as Reported by: BRITTNEY MARTINEZ on 11/15/20 1204 Allopurinol (Allopurinol) 300 Mg Tablet, 300 MG PO DAILY, (Reported) Entered as Reported by: BETTIE HA on 11/18/17 2323 Budesonide/Formoterol Fumarate (Symbicort 160-4.5 Mcg Inhaler) 10.2 Gm Hfa.aer.ad, 2 PUFF IH BID, (Reported) Entered as Reported by: BRITTNEY MARTINEZ on 11/15/20 1204 Calcitriol (Calcitriol) 0.25 Mcg Capsule, 0.25 MCG PO DAILY, (Reported) Entered as Reported by: BETTIE HA on 11/18/17 232 Calcium Acetate (Calcium Acetate) 667 Mg Tablet, 2,001 MG PO TIDWM, (Reported) Entered as Reported by: BRITTNEY MARTINEZ on 11/15/20 120 Calcium Acetate (Calcium Acetate) 667 Mg Tablet, 1,334 MG PO UD, (Reported) Entered as Reported by: BRITTNEY MARTINEZ on 11/15/20 120 Carvedilol (Carvedilol) 6.25 Mg Tablet, 6.25 MG PO BID, (Reported) Entered as Reported by: BRITTNEY MARTINEZ on 11/15/20 120 Cinacalcet HCl (Sensipar) 30 Mg Tablet, 30 MG PO SuMoWeFr, (Reported) Entered as Reported by: BRITTNEY MARTINEZ on 11/15/20 120 FA/Vit Bcomp&C/Zinc/Vitamin D3 (Dialyvite 800-Ultra D Tablet) 1 Each Tablet, 1 EACH PO DAILY, (Reported) Entered as Reported by: BETTIE HA on 11/18/172322 Ferric Citrate (Auryxia) 210 Mg Tablet, 210 MG PO TIDWM, (Reported) Entered as Reported by: BRITTNEY MARTINEZ on 11/15/20 120 Furosemide (Furosemide) 80 Mg Tablet, 80 MG PO DAILY, (Reported) Entered as Reported by: BRITTNEY MARTINEZ on 11/15/20 120 Magnesium Oxide (Magnesium Oxide) 400 Mg Tablet, 400 MG PO DAILY, (Reported) Entered as Reported by: BRITTNEY MARTINEZ on 11/15/20 120 [place]-3 Fatty Acids/Fish Oil ([place] 3 1,000 mg Softgel) 1 Each Capsule, 1 EACH PO DAILY, (Reported) Entered as Reported by: BRITTNEY MARTINEZ on 11/15/20 120 Omeprazole (Omeprazole) 20 Mg Capsule.dr, 20 MG PO BID, (Reported) Entered as Reported by: BETTIE HA on 11/18/172322 Pravastatin Sodium (Pravastatin Sodium) 20 Mg Tablet, 20 MG PO HS, (Reported) Entered as Reported by: BRITTNEY MARTINEZ on 11/15/20 120 Sertraline HCl (Sertraline HCl) 50 Mg Tablet, 50 MG PO DAILY, (Reported) Entered as Reported by: BETTIE HA on 11/18/17 9318 Tiotropium Reserve (Spiriva) 1 Inh Aerp, 1 INH IH DAILY, (Reported) Entered as Reported by: BRITTNEY MARTINEZ on 11/15/20 1204 Review of Systems Review of Systems Constitutional: see HPI Eyes: No Symptoms Reported Ears, Nose, Mouth, Throat: no symptoms reported Respiratory: no symptoms reported Cardiovascular: no symptoms reported Gastrointestinal: no symptoms reported Genitourinary: see HPI Musculoskeletal: no symptoms reported Skin: no symptoms reported Psychiatric/Neurological: No Symptoms Reported Past Cblcosk-Iynrra-Wahswn Hx Patient Social History Tobacco Use?: No Use of E-Cig and/or Vaping dev: No Substance use?: No Alcohol Use?: No Pt feels they are or have been: No Immunizations Up To Date PED Vaccines UTD: Yes Influenza Vaccine Up-to-Date: Yes; Up-to-Date First/Initial COVID19 Vaccinat: AUG 13 2020 Second COVID19 Vaccination Alonso: SEPTEMBER 10 2020 Seasonal Allergies Seasonal Allergies: No Past Medical History Surgeries: Yes (diaylsis cath, ) Abdominal, Orthopedic Respiratory: Yes (lung cancer) COPD Currently Using CPAP: No Currently Using BIPAP: No Cardiac: Yes Hypertension Neurological: No Genitourinary: Yes (DIALYSIS AT HOME EACH NIGHT) Renal Failure, Dialysis Gastrointestinal: Yes Gastroesophageal Reflux Musculoskeletal: No Endocrine: No HEENT: No Cancer: Yes (upper dentures) Lung (With metastases to the liver) Did You Recieve Any Treatments: Yes What Type of Treatment Did You: Chemotherapy Psychosocial: No Integumentary: No Blood Disorders: No Physical Exam Vital Signs Vital Signs - First Documented 07/22/21 00:22 Temp 36.8 Pulse 84 Resp 18 B/P (MAP) 120/76 (91) Pulse Ox 99 O2 Delivery Room Air Capillary Refill : Less Than 3 Seconds Height, Weight, BMI Height: 5'10.00" Weight: 177lbs. oz. 80.967769ux; 21.00 BMI Method:Stated General Appearance: WD/WN, no apparent distress HEENT: PERRL/EOMI, other (Mucous membranes dry, contusion to the left forehead) Neck: non-tender, supple, normal inspection Cardiovascular: regular rate, rhythm, no edema, no JVD, no murmur Respiratory: lungs clear, normal breath sounds, no respiratory distress Gastrointestinal: normal bowel sounds, non tender, soft Extremities: non-tender, normal inspection, no pedal edema, other (No pain with rotation of the hips) Neurologic/Psychiatric: employment adjudicator II-XII nml as tested, no motor/sensory deficits, alert, normal mood/affect, oriented x 3 Skin: normal color, warm/dry, ecchymosis (Left forehead) Chauncey Coma Score Best Eye Response: (4) Open Spontaneously Best Verbal Response: (5) Oriented Best Motor Response: (6) Obeys Commands Chauncey Total: 15 Progress/Results/Core Measures Results/Orders Lab Results Laboratory Tests Test 07/22/21 00:28 Range/Units White Blood Count 6.9 4.3-11.0 10^3/uL Red Blood Count 2.62 L 4.30-5.52 10^6/uL Hemoglobin 8.2 L 13.3-17.7 g/dL Hematocrit 24 L 40-54 % Mean Corpuscular Volume 91 80-99 fL Mean Corpuscular Hemoglobin 31 25-34 pg Mean Corpuscular Hemoglobin Concent 35 32-36 g/dL Red Cell Distribution Width 15.9 H 10.0-14.5 % Platelet Count 141 130-400 10^3/uL Mean Platelet Volume 9.1 9.0-12.2 fL Immature Granulocyte % (Auto) 6 % Neutrophils (%) (Auto) 63 42-75 % Lymphocytes (%) (Auto) 15 12-44 % Monocytes (%) (Auto) 11 0-12 % Eosinophils (%) (Auto) 5 0-10 % Basophils (%) (Auto) 1 0-10 % Neutrophils # (Auto) 4.4 1.8-7.8 10^3/uL Lymphocytes # (Auto) 1.0 1.0-4.0 10^3/uL Monocytes # (Auto) 0.8 0.0-1.0 10^3/uL Eosinophils # (Auto) 0.3 0.0-0.3 10^3/uL Basophils # (Auto) 0.1 0.0-0.1 10^3/uL Immature Granulocyte # (Auto) 0.4 H 0.0-0.1 10^3/uL Sodium Level 143 135-145 MMOL/L Potassium Level 3.3 L 3.6-5.0 MMOL/L Chloride Level 101 98-107 MMOL/L Carbon Dioxide Level 24 21-32 MMOL/L Anion Gap 18 H 5-14 MMOL/L Blood Urea Nitrogen 50 H 7-18 MG/DL Creatinine 15.50 H 0.60-1.30 MG/DL Estimat Glomerular Filtration Rate 3 BUN/Creatinine Ratio 3 Glucose Level 116 H 70-105 MG/DL Calcium Level 8.6 8.5-10.1 MG/DL Corrected Calcium 9.2 8.5-10.1 MG/DL Magnesium Level 1.4 L 1.6-2.4 MG/DL Total Bilirubin 0.4 0.1-1.0 MG/DL Aspartate Amino Transf (AST/SGOT) 6 5-34 U/L Alanine Aminotransferase (ALT/SGPT) 11 0-55 U/L Alkaline Phosphatase 90 40-136 U/L Total Protein 6.0 L 6.4-8.2 GM/DL Albumin 3.2 3.2-4.5 GM/DL My Orders Orders - PINEDA QUEVEDO MD Cbc With Automated Diff (07/22/21 00:27) Comprehensive Metabolic Panel (07/22/21 00:27) Magnesium (07/22/21 00:27) Implanted Port: Access (07/22/21 00:27) Ct Head Wo (07/22/21 00:34) Ns (Ivpb) (Sodium Chloride 0.9%) (07/22/21 01:00) Orthostatic Vital Signs (Adult (07/22/21 00:52) Medications Given in ED Vital Signs/I&O 07/22/21 07/22/21 07/22/21 00:22 01:20 04:10 Temp 36.8 36.4 Pulse 84 78 79 83 82 Resp 18 18 B/P (MAP) 120/76 (91) 110/71 (84) 117/79 (92) 102/68 (79) Pulse Ox 99 99 O2 Delivery Room Air Room Air Blood Pressure Mean: 79 Progress Progress Note #1: Time: 02:30 Progress Note Due to the potential hemorrhagic nature of the intracranial lesions, neurosurgery at [facility] was contacted at 02:15. I am awaiting callback. Patient was thought to be getting hypovolemic from his dialysis treatments. He received a normal saline bolus of 250 mL after which he had normal orthostatic blood pressures and felt better. Progress Note #2: Time: 03:10 Progress Note I reviewed this case with Dr. Lancaster who is also reviewed the imaging. Hemorrhage associated with these lesions cannot be completely ruled out. Given the patient's status as a dialysis patient along with these potential intra cranial injuries, transfer to a neurosurgical and dialysis capable facility was deemed necessary. Patient is asymptomatic at this time. Diagnostic Imaging Diagonstic Imaging: CT Plain Films/CT/US/NM/MRI: head Comments CT head viewed by me and stat rad report reviewed. There were 2 hyperdense lesions noted in the left caudate and along the left frontal lobe concerning for hyperdense masses or hemorrhagic masses. The largest mass in the left caudate measures approximately 2 x 1.1 x 1.6 cm. Further evaluation could be performed with contrast enhancing MRI. Departure Impression Primary Impression: Intracranial space-occupying lesion Additional Impressions: Head trauma Qualified Codes: S09.90XA - Unspecified injury of head, initial encounter Fall on same level Qualified Codes: W18.30XA - Fall on same level, unspecified, initial encounter End stage renal failure on dialysis Disposition: 02 XFER SHT-TRM HOSP Condition: Stable Transfer Transfer Reason: Exceeds level of care Time Spoke to Accepting Phy: 03:00 Transfer Progress Notes Transfer accepted by Dr. Lancaster as a head trauma to [facility] ER. Report given to Dr. Appiah, ER physician. Transfer Facility: [facility] Departure-Patient Inst. Decision time for Depature: 04:10 Referrals: JACQUELINE SPARKS DO (PCP) Primary Care Physician RAMIRO JOHNSON MD (Family) Primary Care Physician PINEDA QUEVEDO MD Jul 22, 2021 02:28
--- NOTE | 2021-07-22 04:38 | Diagnostic Imaging Report ---
PROCEDURE: CT head without contrast. TECHNIQUE: Multiple contiguous axial images were obtained through the brain without the use of intravenous contrast. Auto Exposure Controls were utilized during the CT exam to meet ALARA standards for radiation dose reduction. DATE: July 22, 2021. COMPARISON: MRI brain November 23, 2020. INDICATION: 66-year-old male, fall. Weakness. Headache. FINDINGS: There is no identified skull fracture. There is a round hyperdense lesion adjacent to the left lateral ventricle which measures 2.1 x 1.2 cm in size on axial image 32. There is an additional extra-axial hyperdense lesion adjacent to the anterior aspect of the left frontal lobe on the same image which measures 1.2 x 0.8 cm in size. The ventricles and cerebral spinal fluid spaces are of normal size and configuration for the patient's age. There is no abnormal extra-axial fluid collection. There is no midline shift. IMPRESSION: 1. Round hyperdense lesion adjacent to the left lateral ventricle and additional extra-axial hyperdense lesion adjacent to the anterior aspect of the left frontal lobe, both of which are new since November 23, 2020. There is no pronounced adjacent edema. These are most likely neoplastic in etiology. Particularly given new since November 23, 2020, metastatic disease is a differential diagnostic consideration. Further evaluation with MRI brain without and with intravenous contrast may be of benefit. Dictated by: Dictated on workstation # [id number]
== END 2021-07-22 04:10 | disposition short-term general hospital (02) ==
LOC: EDUNIT# 00:22 → ER 00:24
DX: S09.90XA Unspecified injury of head, initial encounter (principal); S00.83XA Contusion of other part of head, initial encounter; R90.0 Intracranial space-occupying lesion found on diagnostic imaging of central nervous system; I12.0 Hypertensive chronic kidney disease with stage 5 chronic kidney disease or end stage renal disease; N18.6 End stage renal disease; J44.9 Chronic obstructive pulmonary disease, unspecified; I10 Essential (primary) hypertension; K21.9 Gastro-esophageal reflux disease without esophagitis; Z79.899 Other long term (current) drug therapy; W18.30XA Fall on same level, unspecified, initial encounter; Y92.009 Unspecified place in unspecified non-institutional (private) residence as the place of occurrence of the external cause
CPT/HCPCS: 36415; 70450; 80053; 83735; 85025

== ENCOUNTER 2021-08-08 09:03 | Outpatient (RCR) | payer MEDICARE, OTHER ==
[2021-07-17 08:52] LABS: BASOPHILS # (AUTO) 0.1 10^3/uL (0.0-0.1); BASOPHILS % (AUTO) 1 % (0-10); EOSINOPHILS # (AUTO) 0.2 10^3/uL (0.0-0.3); EOSINOPHILS % (AUTO) 4 % (0-10); HEMATOCRIT 24 % (40-54); HEMOGLOBIN 8.3 g/dL (13.3-17.7); LYMPHOCYTES # (AUTO) 0.8 10^3/uL (1.0-4.0); LYMPHOCYTES % (AUTO) 16 % (12-44); MEAN CORPUSCULAR HEMOGLOBIN 31 pg (25-34); MEAN CORPUSCULAR HGB CONC 35 g/dL (32-36); MEAN CORPUSCULAR VOLUME 89 fL (80-99); MEAN PLATELET VOLUME 9.4 fL (9.0-12.2); MONOCYTES # (AUTO) 0.5 10^3/uL (0.0-1.0); MONOCYTES % (AUTO) 9 % (0-12); NEUTROPHILS # (AUTO) 3.4 10^3/uL (1.8-7.8); NEUTROPHILS % (AUTO) 67 % (42-75); PLATELET COUNT 178 10^3/uL (130-400); WHITE BLOOD COUNT 5.1 10^3/uL (4.3-11.0)
[2021-07-17 09:10] LABS: CALCIUM 8.8 MG/DL (8.5-10.1); CREATININE SERUM 15.88 MG/DL (0.60-1.30); POTASSIUM 3.7 MMOL/L (3.6-5.0)
[2021-07-24 09:19] LABS: BASOPHILS # (AUTO) 0.1 10^3/uL (0.0-0.1); BASOPHILS % (AUTO) 1 % (0-10); EOSINOPHILS # (AUTO) 0.4 10^3/uL (0.0-0.3); EOSINOPHILS % (AUTO) 6 % (0-10); HEMATOCRIT 23 % (40-54); HEMOGLOBIN 8.1 g/dL (13.3-17.7); LYMPHOCYTES # (AUTO) 0.9 10^3/uL (1.0-4.0); LYMPHOCYTES % (AUTO) 14 % (12-44); MEAN CORPUSCULAR HEMOGLOBIN 31 pg (25-34); MEAN CORPUSCULAR HGB CONC 35 g/dL (32-36); MEAN CORPUSCULAR VOLUME 90 fL (80-99); MEAN PLATELET VOLUME 9.3 fL (9.0-12.2); MONOCYTES # (AUTO) 0.6 10^3/uL (0.0-1.0); MONOCYTES % (AUTO) 9 % (0-12); NEUTROPHILS # (AUTO) 4.1 10^3/uL (1.8-7.8); NEUTROPHILS % (AUTO) 66 % (42-75); PLATELET COUNT 137 10^3/uL (130-400); WHITE BLOOD COUNT 6.3 10^3/uL (4.3-11.0)
[2021-07-24 09:37] LABS: ALBUMIN 3.2 GM/DL (3.2-4.5); BILIRUBIN,TOTAL 0.5 MG/DL (0.1-1.0); CALCIUM 8.8 MG/DL (8.5-10.1); CREATININE SERUM 14.5 MG/DL (0.60-1.30); POTASSIUM 3.8 MMOL/L (3.6-5.0); TOTAL PROTEIN 5.9 GM/DL (6.4-8.2)
[~2021-08-08 09:03] MED LIST changes: +DEXAMETHASONE SODIUM PHOSPHATE IV ONE; +FAMOTIDINE 20MG/2ML IV (CANCER CTR) IV SCH; +NS IV 1000 ML (CANCER CTR) IV SCH; +NS IV ONE; +diphenhydrAMINE 25 MG TAB (BENADRYL) CANCER CENTER PO SCH
== END 2021-08-12 | disposition home or self-care (01) ==
LOC: ONC 09:03
PROVIDERS: ATTEND Internal Medicine Hematology & Oncology
DX: Z51.0 Encounter for antineoplastic radiation therapy (principal); C34.32 Malignant neoplasm of lower lobe, left bronchus or lung; C78.7 Secondary malignant neoplasm of liver and intrahepatic bile duct; C79.31 Secondary malignant neoplasm of brain; I12.0 Hypertensive chronic kidney disease with stage 5 chronic kidney disease or end stage renal disease; N18.5 Chronic kidney disease, stage 5; Z92.21 Personal history of antineoplastic chemotherapy
CPT/HCPCS: 36591; 77290; 77300; 77301; 77334; 77336; 77338; 77386; 80048; 80053; 83615; 85025; 96375